=== PATIENT | female | born 1970 | race Caucasian/White ===

== ENCOUNTER 2017-12-10 09:29 | Inpatient (IN) | payer OTHER ==
[~2017-12-10] VITALS: Ht 149.9 cm; Wt 90.7 kg
[2017-12-10 09:30] VITALS: BP 162/78
--- NOTE | 2017-12-10 09:30 | NUR ---
Note undone in EDM - 12/10/17 at 1029 by CAESAR 47F biba als to rm 10 for sob since 299 d/t possible allergic reaction, progressively getting worse. Patient sts fish allergy and works at [employer], possible contact with fish. Came from urgent today bell captain. Severe sob with tachypneic and labored breathing. One worded phrases. 100% pulse ox on 8L on face mask. Lip and face swelling noted. Tachycardiac. Rash to groin area per patient for past 2 weeks. Patient denies any nausea at this time. ER MD serra, emt, rt by bedside. Patient to cardiac, bp, pulse ox, and respiration monitor. Will continue to monitor.
--- NOTE | 2017-12-10 09:30 | NUR ---
PT BIBA ALS TO BED 10
--- NOTE | 2017-12-10 09:30 | NUR ---
47F biba als to rm 10 for sob since 299 d/t possible allergic reaction, progressively getting worse. Patient sts fish allergy and works at [employer], possible contact with fish. Came from urgent today administrative dietitian. Severe sob with tachypneic and labored breathing. One worded phrases. 100% pulse ox on 8L on face mask. Angiodema present to lip and face swelling noted. Tachycardiac. Rash to groin area per patient for past 2 weeks. Patient denies any nausea at this time. ER MD serra, emt, rt by bedside. Patient to cardiac, bp, pulse ox, and respiration monitor. Will continue to monitor.
[2017-12-10] MEDS ORDERED: IPRATROPIUM 0.02% 0.5 MG/2.5 ML NEBU INH ONE (09:35)
[2017-12-10] MEDS ORDERED: methylPREDNISolone SS 125 MG/2 ML VIAL IVP ONE (09:35)
[2017-12-10] MEDS ORDERED: NACL 0.9% 1,000 ML IV ONE (09:35)
[2017-12-10] MEDS ORDERED: RACEPINEPHRINE 2.25% 13.5 MG/0.5 ML NEBU INH ONE ×2 (09:35→09:38)
[2017-12-10] MEDS ORDERED: ALBUTEROL 0.083% 2.5 MG/3 ML NEBU INH ONE ×2 (09:35→10:25)
[2017-12-10] MEDS ORDERED: MAG SULF 2000 MG/WATER PREMIX 50 ML IV ONE (09:35)
[2017-12-10] MEDS ORDERED: FAMOTIDINE 20 MG/2 ML VIAL IVP ONE (09:35)
[2017-12-10] MEDS ORDERED: diphenhydrAMINE 50 MG/ML VIAL IVP ONE (09:35)
--- NOTE | 2017-12-10 09:35 | NUR ---
XRAY AT BEDSIDE FOR EXAM
--- NOTE | 2017-12-10 10:17 | NUR ---
er md serra by bedside re-evaluating patient. new orders. rt called. daughter by bedside. will continue to monitor. wheezing throughout lung sounds upper and lower bases. patient talking in short phrases. tachynpeic and labored breathing. angioedema remains present.
--- NOTE | 2017-12-10 11:02 | NUR ---
urine collected for ua
[2017-12-10] MEDS ORDERED: DOCUSATE SODIUM 100 MG GELCAP PO PRN (11:15)
[2017-12-10] MEDS ORDERED: ONDANSETRON 4 MG/2 ML VIAL IM/IVP PRN (11:15)
[2017-12-10] MEDS ORDERED: ACETAMINOPHEN 325 MG TAB PO PRN (11:15)
[2017-12-10 11:31] LABS: EOSINOPHILS # (AUTO) 0.3 K/uL (0-0.4); MEAN CORPUSCULAR HEMOGLOBIN 20 pg (27-31); MEAN CORPUSCULAR HGB CONC 29 g/dL (33-37); MEAN CORPUSCULAR VOLUME 67.3 fL (80-94)
--- NOTE | 2017-12-10 11:32 | NUR ---
resp status improved. clear speech with short phrases. clear lungs sound to bl upper and lower bases. awaiting pending admit. pt positioned to comfort. all needs met at this time. will continue to monitor.
[2017-12-10 11:38] LABS: APPEARANCE,URINE CLEAR (CLEAR); BILIRUBIN,URINE NEGATIVE (NEGATIVE); BLOOD, URINE NEGATIVE (NEGATIVE); COLOR,URINE YELLOW (YELLOW); LEUKOCYTE ESTERASE ,URINE NEGATIVE (NEGATIVE); NITRITE, URINE NEGATIVE (NEGATIVE); PH,URINE 5.5 (5.0-9.0); UGLUCOSE NEGATIVE (NEGATIVE)
[2017-12-10 11:39] LABS: PROTHROMBIN TIME 9.3 secs (10.8-13.4)
[2017-12-10 11:41] LABS: BASOPHILS % (AUTO) 0.2 % (0.0-2.0); EOSINOPHILS % (AUTO) 1.6 % (0.0-4.0); LYMPHOCYTES # (AUTO) 7.3 K/uL (2.5-16.5); LYMPHOCYTES % (AUTO) 37.1 % (20.5-51.1); MONOCYTES # (AUTO) 1.1 K/uL (0.8-1.0); MONOCYTES % (AUTO) 5.5 % (1.7-9.3); NEUTROPHILS % (AUTO) 55.6 % (42.2-75.2); PLATELET COUNT (AUTO) 363 K/uL (140-450)
[2017-12-10 11:42] LABS: WHITE BLOOD COUNT (AUTO) 19.3 K/uL (4.8-10.8)
[2017-12-10 11:43] LABS: ALBUMIN 3.5 g/dL (3.4-5.0); ANION GAP 16.6 (8-16); CARBON DIOXIDE 23.4 mmol/L (21-32); CREATININE 0.7 mg/dL (0.6-1.3); HEMATOCRIT 33.7 % (36-48); HEMOGLOBIN 9.9 g/dL (12.0-16.0); TOTAL BILIRUBIN 0.4 mg/dL (0.0-1.0)
[2017-12-10 11:43] LABS: BARBITURATE, URINE NEG. ng/ml (NEG <=200); BENZODIAZEPINE, URINE NEG. ng/mL (NEG <=200); CANNABINOID, URINE NEG. ng/mL (NEG <=50); COCAINE, URINE NEG. ng/mL (NEG <=300); OPIATE, URINE NEG. ng/mL (NEG <=2000); PHENCYCLIDINE SCREEN,URINE NEG. ng/mL (NEG <=25)
[2017-12-10 11:49] LABS: CHOL/HDL RATIO 2.4 (1-4.5); MAGNESIUM 1.7 mg/dL (1.8-2.4); PHOSPHORUS 2.4 mg/dL (2.5-4.9); THYROID STIMULATING HORMONE 2.75 uIU/mL (0.34-3.74)
--- NOTE | 2017-12-10 12:00 | NUR ---
Patient will be admitted to care of [facility]. Admited to Tele. Will go to room 105A. Belongings list completed. Bedside Report to Patricia HOFFMAN.
[2017-12-10 12:15] VITALS: BP 134/62
--- NOTE | 2017-12-10 12:15 | NUR ---
PATIENT BROUGHT TO UNIT VIA GURNEY FROM THE ER. RECEIVED BEDSIDE REPORT FROM LENS BLANK GAUGER. PATIENT IS AAOX4, HAS NO SIGNS AND SYMPTOMS OF ACUTE DISTRESS NOTED AT THIS TIME. IS ON NASAL CANNULA AT 2LPM. HAS IV TO THE RIGHT HAND 22G, SALINE LOCK. IV TO THE LEFT AC 20G. BOTH SITES ARE CLEAN, DRY AND PATENT. ORIENTED PATIENT TO THE ROOM, EXPLAINED THE CALL LIGHT AND SHE VERBALIZED UNDERSTANDING. BED IN LOWEST POSITION,SIDE RAILS UP X2, CALL LIGHT WITHIN REACH. MRSA SWAB DONE. WILL CONTINUE TO MONITOR.
[2017-12-10] MEDS: DEXT 5% / NACL 0.45% 1,000 ML IV SCH ×2 (12:39→22:38)
[2017-12-10] MEDS ORDERED: LISI10TA11 PO (12:53)
[2017-12-10] MEDS ORDERED: LISINOPRIL 10 MG TAB PO SCH (13:30)
[2017-12-10] MEDS ORDERED: KCL 20 MEQ/WATER INJ PREMIX 200 ML IV SCH (14:00)
--- NOTE | 2017-12-10 15:30 | NUR ---
PATIENTS FACIAL SWELLING LOOKS LIKE IT WENT DOWN SOME. SHE STATES THAT SHE FEELS LIKE IT HAS WELL. SAME WITH HER TONGUE AND HER THROAT. NO SIGNS AND SYMPTOMS OF DISTRESS NOTED. WILL CONTINUE TO MONITOR;.
[2017-12-10 16:00] VITALS: BP 104/53
[2017-12-10] MEDS ORDERED: ALBUTEROL SULFATE/IPRATROPIU 3 ML SOL IH PRN (18:10)
[2017-12-10] MEDS: ALBUTEROL SULFATE/IPRATROPIU 3 ML SOL IH SCH (19:27)
--- NOTE | 2017-12-10 19:29 | NUR ---
ENDORSED PATIENT TO NIGHT RN FOR CONTINUITY OF CARE. PATIENT IN STABLE CONDITION.
--- NOTE | 2017-12-10 19:30 | NUR ---
RECEIVED FROM AM RN IN BED AWAKE AND ALERT. NO SOB. ON BREATHING TREATMENT AT THIS TIME WITH RESPIRATORY THERAPIST. CALL LIGHT WITH IN REACH. FRIENDS IN HERE VISITING. CARE PLANS FOR THE NIGHT DISCUSSED WITH THEM . PT. ABLE TO SPEAK HEBREW AND UNDERSTAND IT WELL. TELEMETRY MONITORING. RH# 22 INTACT AND NO INFILTRATION.
[2017-12-10 20:24] VITALS: BP 127/72
[2017-12-10] MEDS ORDERED: DEXTROSE 50% 50 ML SYR IVP PRN (21:40)
--- NOTE | 2017-12-10 22:00 | NUR ---
NEW IVF SITE TO RIGHT FOREARM #22 INSERTED BY CHARGE NURSE RT OLD IVF SITE DISCONTINUED BY PT. ACCIDENTALLY. TIP INTACT. TOLERATED WELL.
[2017-12-11 00:41] VITALS: BP 106/74
--- NOTE | 2017-12-11 00:42 | NUR ---
PT. SLEEPING WELL AT THIS TIME. NO RESTLESSNESS. CALL LIGHT WITH IN REACH. ASSISTED TO RESTROOM .
[2017-12-11 04:41] VITALS: BP 115/69
--- NOTE | 2017-12-11 05:47 | NUR ---
SLEEPING WELL THIS SHIFT. VITAL SIGNS WNL. WAKES UP EASILY. PT. STATED NO MORE FEELING OF TIGHTNESS IN HER THROAT. ON ROOM AIR WITH 02 SAT AT 98 %. DENIES PAIN. TELEMETRY MONITORING.
[2017-12-11] MEDS: BLOOD GLUCOSE MONITORING 1 DEV DEV FS SCH ×4 (06:40→21:14)
[2017-12-11] MEDS: INSULIN LISPRO SLIDING SCALE 100 UNITS/ML VIAL SUBQ PRN ×4 (06:42→21:21)
[2017-12-11] MEDS: ALBUTEROL SULFATE/IPRATROPIU 3 ML SOL IH SCH ×3 (06:53→19:12)
[2017-12-11 06:54] LABS: HEMATOCRIT 29.9 % (36-48); HEMOGLOBIN 8.9 g/dL (12.0-16.0); MEAN CORPUSCULAR HEMOGLOBIN 20 pg (27-31); MEAN CORPUSCULAR HGB CONC 30 g/dL (33-37); MEAN CORPUSCULAR VOLUME 67.2 fL (80-94); PLATELET COUNT (AUTO) 301 K/uL (140-450); RED BLOOD CELL COUNT(AUTO) 4.44 MIL/uL (4.20-5.40); RED CELL DISTRIBUTION WIDTH 18.9 % (11.6-13.7); WHITE BLOOD COUNT (AUTO) 15.8 K/uL (4.8-10.8)
--- NOTE | 2017-12-11 07:24 | NUR ---
ENDORSED TO THE AM RN AWAKE AND ALERT. NO RESTLESSNESS. TELEMETRY MONITORING. DENIED PAIN THIS SHIFT. NO SOB. ROOM AIR 98 %. GOOD AFFECT. ROM X 4. CLEAR SPEECH.
--- NOTE | 2017-12-11 07:25 | NUR ---
RECEIVED REPORT FROM KIT PLANNER NURSE AT BEDSIDE FOR CONTINUITY OF CARE. PATIENT AWAKE AND ALERT, CAN VERBALIZED NEEDS, PATIENT AMBULATES ON STEADY GAIT. PATIENT NPO. UPDATED BOARD. IV TO RIGHT FA #22, PATENT, ASYMPTOMATIC, AND INTACT, INFUSING IVF WELL. UPDATED PATIENT WITH PLAN OF CARE. PATIENT VERBALIZED UNDERSTANDING. SAFETY PRECAUTION IN PLACE, CALL LIGHT WITH IN REACH, WILL CONTINUE TO MONITOR PATIENT.
[2017-12-11 07:45] LABS: ANION GAP 11.9 (8-16); CARBON DIOXIDE 23.9 mmol/L (21-32); CREATININE 0.6 mg/dL (0.6-1.3); POTASSIUM 3.8 mmol/L (3.5-5.1)
[2017-12-11 07:54] LABS: MAGNESIUM 2.2 mg/dL (1.8-2.4); PHOSPHORUS 2.5 mg/dL (2.5-4.9)
[2017-12-11 08:00] VITALS: BP 140/71
[2017-12-11 08:08] LABS: LYMPHOCYTES % (MANUAL) 17 % (20-46); MONOCYTES % (MANUAL) 5 % (5-12)
[2017-12-11 08:14] LABS: T4 (THYROXINE) 10.3 ug/dL (4.5-12.0)
[2017-12-11] MEDS ORDERED: methylPREDNISolone SS 125 MG/2 ML VIAL IVP SCH (08:15)
[2017-12-11] MEDS: LISINOPRIL 10 MG TAB PO SCH (08:16)
[2017-12-11] MEDS: DEXT 5% / NACL 0.45% 1,000 ML IV SCH (08:24)
--- NOTE | 2017-12-11 08:29 | NUR ---
BEDSIDE SWALLOW SCREENING DONE. PATIENT TOLERATED WATER AND APPLESAUCE WELL. NO DISCOMFORT FROM SWALLOWING NOTED. ORDERED MEDICATIONS GIVEN. PATIENT TOLERATED THEM WELL. NO SIGNS OF DISTRESS OR SOB NOTED ON ROOM AIR. INFORMED DR. LANDEROS ABOUT RESULTS, NEW ORDER IN FOR CCHO 60 GM DIET. CALLED DIETARY TO INFORM THEM OF THE CHANGE. INFORMED PATIENT. WILL FOLLOW UP WITH DIETARY.
[2017-12-11] MEDS ORDERED: diphenhydrAMINE 50 MG/ML VIAL IVP SCH (09:15)
--- NOTE | 2017-12-11 09:21 | NUR ---
PATIENT C/O ITCHINESS AROUND LIPS. INFORMED DR. LANDEROS, NEW ORDERS IN FOR BENADRYL IVP. INFORMED PATIENT. ORDERED MEDICATION GIVEN. PATIENT TOLERATED IT WELL. DAUGHTER AT BEDSIDE. PATIENT CURRENTLY EATING LATE BREAKFAST TRAY BROUGHT UP BY FNS. WILL CONTINUE TO MONITOR PATIENT.
--- NOTE | 2017-12-11 09:35 | NUR ---
PATIENT HAS BEEN SCREENED AND CATEGORIZED HIGH NUTRITION RISK. PATIENT WILL BE SEEN WITHIN 1-2 DAYS OF ADMISSION. 12/11/17-12/12/[address]
[2017-12-11] MEDS ORDERED: LORATADINE 10 MG TAB PO SCH (11:07)
[2017-12-11] MEDS ORDERED: FAMOTIDINE 20 MG TAB PO SCH (11:08)
[2017-12-11] MEDS: SODIUM PHOS / POTASSIUM PHOS 1 PKT PDR PO SCH ×3 (11:39→21:18)
--- NOTE | 2017-12-11 11:39 | NUR ---
ORDERED MEDICATIONS GIVEN. ORDERED NS AT 40 ML/HR STARTED. BLOOD SUGAR 234, COVERAGE GIVEN. PATIENT TOLERATING IT WELL. PATIENT NOW WAITING FOR LUNCH. NO SIGNS OF DISTRESS OR SOB NOTED ON ROOM AIR. SAFETY PRECAUTION IN PLACE, WILL CONTINUE TO MONITOR PATIENT.
[2017-12-11] MEDS: NACL 0.9% 1,000 ML IV SCH (11:40)
[2017-12-11 12:00] VITALS: BP 120/69
--- NOTE | 2017-12-11 13:25 | NUR ---
PATIENT RESTING IN BED, NO SIGNS OF DISTRESS NOTED. PATIENT CURRENTLY GETTING BREATHING TREATMENT. VERBALIZED THAT SHE ATE HER LUNCH WELL. PATIENT DENIES PAIN. WILL CONTINUE TO MONITOR PATIENT.
[2017-12-11 16:00] VITALS: BP 124/64
--- NOTE | 2017-12-11 17:40 | NUR ---
BLOOD SUGAR 252, COVERAGE GIVEN. PATIENT TOLERATED IT WELL. ORDERED MEDICATION GIVEN. PATIENT TOLERATED IT WELL. WILL CONTINUE TO MONITOR PATIENT.
--- NOTE | 2017-12-11 19:25 | NUR ---
RECEIVED REPORT FROM DAY SHIFT NURSE AT BEDSIDE. PT IN STABLE CONDITION. FAMILY IS AT BEDSIDE. PT IS A/O X4. PT ON RA. IV ACCESS IN R FA 22G. IV IS PATENT AND INTACT WITH NS RUNNING PER MD ORDERS. SKIN IS INTACT. NO C/O PAIN AT THIS TIME. BED LOCKED, LOW POSITION, SIDE RAILS UP X2. BOARD UPDATED WILL CONTINUE TO MONITOR PT.
--- NOTE | 2017-12-11 19:25 | NUR ---
REPORT GIVEN TO FINANCIAL COMPLIANCE EXAMINER RN AT BEDSIDE FOR CONTINUITY OF CARE. PATIENT IN STABLE CONDITION.
[2017-12-11 20:00] VITALS: BP 125/58
--- NOTE | 2017-12-11 21:14 | NUR ---
BS CHECKED, 236. INSULIN COVERAGE GIVEN PER MD ORDERS. PT TOLERATED WELL. ALL NEEDS ARE MET AT THIS TIME.
--- NOTE | 2017-12-11 23:10 | NUR ---
PT ASLEEP IN BED. NO S/SX OF DISTRESS. WILL CONTINUE TO MONITOR.
[2017-12-12] VITALS: BP 120/71
--- NOTE | 2017-12-12 00:18 | NUR ---
PT VS WITHIN NORMAL LIMITS. PT IS ASLEEP IN BED. WILL CONTINUE TO MONITOR.
--- NOTE | 2017-12-12 02:39 | NUR ---
PT IS ASLEEP IN BED. NO S/SX OF DISTRESS. WILL CONTINUE TO MONITOR.
[2017-12-12 04:00] VITALS: BP 118/67
--- NOTE | 2017-12-12 04:10 | NUR ---
PT VS WITHIN NORMAL LIMITS. ALL NEEDS ARE MET AT THIS TIME. WILL CONTINUE TO MONITOR PT.
[2017-12-12] MEDS: BLOOD GLUCOSE MONITORING 1 DEV DEV FS SCH ×2 (05:23→12:06)
--- NOTE | 2017-12-12 05:24 | NUR ---
BS CHECKED, 123. PER MD ORDERS NO COVERAGE NEEDED. WILL CONTINUE TO MONITOR PT.
[2017-12-12 06:24] LABS: HEMATOCRIT 29.1 % (36-48); HEMOGLOBIN 8.6 g/dL (12.0-16.0); MEAN CORPUSCULAR HEMOGLOBIN 20 pg (27-31); MEAN CORPUSCULAR HGB CONC 30 g/dL (33-37); MEAN CORPUSCULAR VOLUME 67.3 fL (80-94); PLATELET COUNT (AUTO) 258 K/uL (140-450); RED BLOOD CELL COUNT(AUTO) 4.32 MIL/uL (4.20-5.40); RED CELL DISTRIBUTION WIDTH 19.2 % (11.6-13.7); WHITE BLOOD COUNT (AUTO) 14.9 K/uL (4.8-10.8)
[2017-12-12 06:29] LABS: ANION GAP 14.1 (8-16); CARBON DIOXIDE 24.5 mmol/L (21-32); CREATININE 0.6 mg/dL (0.6-1.3); POTASSIUM 3.6 mmol/L (3.5-5.1)
[2017-12-12 06:32] LABS: MAGNESIUM 2.1 mg/dL (1.8-2.4); PHOSPHORUS 3.2 mg/dL (2.5-4.9)
[2017-12-12] MEDS: ALBUTEROL SULFATE/IPRATROPIU 3 ML SOL IH SCH ×2 (06:39→13:00)
--- NOTE | 2017-12-12 06:39 | NUR ---
PT SLEEPING WITH NO SIGNS OF DISTRESS NOTED AT THIS TIME, NO HHN GIVEN AT THIS TIME
--- NOTE | 2017-12-12 07:15 | NUR ---
ENDORSED PT TO DAY SHIFT NURSE FOR CONTINUITY OF CARE. PT IN STABLE CONDITION.
--- NOTE | 2017-12-12 07:16 | NUR ---
RECEIVED REPORT FROM LAB CLERK NURSE AT BEDSIDE FOR CONTINUITY OF CARE. PATIENT RESTING, CAN VERBALIZED NEEDS, PATIENT AMBULATES ON STEADY GAIT. UPDATED BOARD. IV TO RIGHT FA #22, PATENT, ASYMPTOMATIC, AND INTACT, INFUSING IVF WELL. UPDATED PATIENT WITH PLAN OF CARE. PATIENT VERBALIZED UNDERSTANDING. SAFETY PRECAUTION IN PLACE, CALL LIGHT WITH IN REACH, WILL CONTINUE TO MONITOR PATIENT.
[2017-12-12 07:25] LABS: BASOPHILS % (MANUAL) 0 % (0-2); EOSINOPHILS % (MANUAL) 0 % (0-4); LYMPHOCYTES % (MANUAL) 28 % (20-46); MONOCYTES % (MANUAL) 6 % (5-12)
[2017-12-12 08:00] VITALS: BP 127/68
[2017-12-12] MEDS: LISINOPRIL 10 MG TAB PO SCH (08:13)
[2017-12-12] MEDS: SODIUM PHOS / POTASSIUM PHOS 1 PKT PDR PO SCH ×2 (08:14→12:09)
--- NOTE | 2017-12-12 08:15 | NUR ---
ADMINISTERED ORDERED MORNING MEDICATIONS. PATIENT TOLERATED THEM WELL. NO SIGNS OF DISTRESS NOTED ON ROOM AIR. PATIENT DENIES PAIN OR ITCHINESS. WILL CONTINUE TO MONITOR PATIENT.
[2017-12-12] MEDS ORDERED: LORATADINE 10 MG TAB PO SCH (09:00)
[2017-12-12] MEDS ORDERED: FAMOTIDINE 20 MG TAB PO SCH (09:00)
--- NOTE | 2017-12-12 09:29 | NUR ---
12/12/17 RD INITIAL ASSESSMENT COMPLETED PLEASE REFER TO NUTRITION ASSESSMENT UNDER CARE ACTIVITY FOR ESTIMATED NUTRITIONAL NEEDS. RD RECOMMENDATIONS: 1. CONTINUE ON CCHO 60 GM TOLERATED. 2. CONSULT RDN PRN. 3. RD WILL F/U 7 DAYS; LOW RISK. JOAN SELLERS MS, RDN
--- NOTE | 2017-12-12 10:20 | NUR ---
PATIENT RESTING IN BED, FAMILY AT BEDSIDE. NO SIGNS OF DISTRESS OR SOB NOTED ON ROOM AIR. WILL CONTINUE TO MONITOR PATIENT.
[2017-12-12] MEDS: NACL 0.9% 1,000 ML IV SCH (11:30)
[2017-12-12 12:00] VITALS: BP 132/87
--- NOTE | 2017-12-12 12:09 | NUR ---
ADMINISTERED ORDERED MORNING MEDICATIONS. PATIENT TOLERATED THEM WELL. NO SIGNS OF DISTRESS NOTED ON ROOM AIR. PATIENT DENIES PAIN OR ITCHINESS. WILL CONTINUE TO MONITOR PATIENT. INFORMED PATIENT OF IMPENDING DISCHARGE. PATIENT VERBALIZED UNDERSTANDING.
[2017-12-12] MEDS ORDERED: ASCORBIC ACID 500 MG TAB PO SCH ×2 (12:39→21:00)
[2017-12-12] MEDS ORDERED: FERROUS SULFATE 325 MG TABEC PO SCH ×2 (12:40→17:00)
[2017-12-12] MEDS ORDERED: VITC500 PO (12:43)
[2017-12-12] MEDS ORDERED: FER325 PO (12:43)
[2017-12-12] MEDS ORDERED: EPIN1KIT32 MR (12:43)
--- NOTE | 2017-12-12 12:56 | NUR ---
NEW ORDERED MEDICATIONS IN. PATIENT MEDICATED. PATIENT TOLERATED IT WELL. NO C/O PAIN. WILL CONTINUE TO MONITOR PATIENT.
--- NOTE | 2017-12-12 13:01 | NUR ---
PT AWAKE AND ALERT REFUSED BREATHING TX AT THIS TIME NO SIGNS OF DISTRESS NOTED SITTING UP IN BED WITH FAMILY AT BEDSIDE
--- NOTE | 2017-12-12 15:00 | NUR ---
DISCHARGE INSTRUCTIONS AND EDUCATION GIVEN TO PATIENT. SHE VERBALIZED UNDERSTANDING. IV REMOVED, IV CATHETER INTACT, MINIMAL BLOOD NOTED. ID BANDS CUT, TELE BOX REMOVED. PATIENT WILL NOW BEGIN TO CHANGE AND BE READY TO BE DISCHARGED HOME.
--- NOTE | 2017-12-12 15:15 | NUR ---
PATIENT AMBULATED OFF FLOOR WITH RN AND FAMILY MEMBER ON STEADY GAIT. PATIENT TOOK ALL HER BELONGINGS WITH HER. PATIENT IN STABLE CONDITION.
--- NOTE | 2017-12-13 13:46 | NUR ---
Patient was discharged home 12/12/17- Review faxed to [facility] [phone].
[2017-12-14 06:16] LABS: FOLIC ACID 13.3 ng/mL (>3.0)
== END 2017-12-12 15:15 | disposition home or self-care (01) | DRG 915 ==
LOC: MED 09:29 → MTU 11:11
PROVIDERS: ADMIT General Practice; ATTEND General Practice
DX: T78.03XA Anaphylactic reaction due to other fish, initial encounter (principal); E43 Unspecified severe protein-calorie malnutrition; R65.10 Systemic inflammatory response syndrome (SIRS) of non-infectious origin without acute organ dysfunction; E87.2 Acidosis; Z68.41 Body mass index [BMI] 40.0-44.9, adult; E83.42 Hypomagnesemia; E83.39 Other disorders of phosphorus metabolism; E66.01 Morbid (severe) obesity due to excess calories; E11.69 Type 2 diabetes mellitus with other specified complication; E11.65 Type 2 diabetes mellitus with hyperglycemia; E87.8 Other disorders of electrolyte and fluid balance, not elsewhere classified; D72.828 Other elevated white blood cell count; T38.0X5A Adverse effect of glucocorticoids and synthetic analogues, initial encounter; R82.4 Acetonuria; E87.6 Hypokalemia; G47.33 Obstructive sleep apnea (adult) (pediatric); D50.9 Iron deficiency anemia, unspecified; I10 Essential (primary) hypertension; Z91.013 Allergy to seafood; Z90.49 Acquired absence of other specified parts of digestive tract; Z79.899 Other long term (current) drug therapy; Z83.3 Family history of diabetes mellitus; Z82.61 Family history of arthritis; Z84.1 Family history of disorders of kidney and ureter; Z82.49 Family history of ischemic heart disease and other diseases of the circulatory system; Y92.89 Other specified places as the place of occurrence of the external cause
CPT/HCPCS: 36415; 71045; 80048; 80053; 80305; 81003; 81025; 82150; 82607; 82728; 82746; 82948; 83036; 83540; 83605; 83690; 83735; 83880; 84100; 84134; 84436; 84443; 84484; 85025; 85045; 85610; 85730; 87040; 87081; 87086; 93005; 94640; 96365; 96375; 99291; J1200; J1815; J2930; J3475; J3480; J3490; J7030; J7042; J7613; J7620; J7644; Q0092

== ENCOUNTER 2017-12-13 19:15 | Emergency (ER) | payer SELFPAY ==
[~2017-12-13] VITALS: Ht 152.4 cm; Wt 81.6 kg
[~2017-12-13 19:15] MED LIST: EPIN1KIT32 MR; FER325 PO; LISI10TA11 PO; VITC500 PO
[2017-12-13 19:20] VITALS: BP 134/79
[2017-12-13] MEDS ORDERED: diphenhydrAMINE 50 MG/ML VIAL IVP ONE (19:30)
[2017-12-13] MEDS ORDERED: FAMOTIDINE 20 MG/2 ML VIAL IVP ONE (19:30)
[2017-12-13] MEDS ORDERED: NACL 0.9% 1,000 ML IV ONE (19:30)
[2017-12-13] MEDS ORDERED: methylPREDNISolone SS 125 MG in WATER STERILE 2 ML IV ONE (19:30)
[2017-12-13] MEDS ORDERED: methylPREDNISolone SS 125 MG/2 ML VIAL ONE (19:32)
[2017-12-13] MEDS ORDERED: diphenhydrAMINE 50 MG/ML VIAL ONE (19:33)
[2017-12-13] MEDS ORDERED: ALBUTEROL SULFATE/IPRATROPIU 3 ML SOL IH ONE (19:35)
--- NOTE | 2017-12-13 19:48 | NUR ---
Breathing treatment administered at bedside by respiratory therapist.
--- NOTE | 2017-12-13 20:00 | NUR ---
PATIENT IS A 47 Y/O FEMALE WHO PRESENTS TO THE ED C/O SOB. PT STATES THAT SHE WAS ADMITTED AND D/C RECENTLY BUT IS COMPLAINING OF THROAT CLOSING UP. PT REPORTS 5/10 ACHING CHEST PAIN THAT DOES NOT RADIATE. PT 100% O2 ON RA, LUNG SOUNDS CLEAR BL. PT DENIES COUGH, N/V/D. PT AWAKE AND ALERT, RR EVEN/UNLABORED. PT REPOSITIONED FOR COMFORT, BED IN LOWEST POSITION. ER MD DR. THEODORE NOTIFIED. WILL CONTINUE TO MONITOR.
--- NOTE | 2017-12-13 20:30 | NUR ---
PATIENT RESTING AT THIS TIME. NO SIGNS OF DISTRESS.
[2017-12-13 21:00] VITALS: BP 132/75
--- NOTE | 2017-12-13 21:00 | NUR ---
Patient discharged with v/s stable. Written and verbal after care instructions given and explained. Patient alert, oriented and verbalized understanding of instructions. Ambulatory with steady gait. All questions addressed prior to discharge. ID band removed. Patient advised to follow up with PMD. Rx of PREDNISONE, EPIPEN, PEPCID, AND BENADRYL given. Patient educated on indication of medication including possible reaction and side effects. Opportunity to ask questions provided and answered.
== END 2017-12-13 21:00 | disposition home or self-care (01) ==
LOC: MED 19:15
DX: T78.1XXA Other adverse food reactions, not elsewhere classified, initial encounter (principal); R06.02 Shortness of breath; R06.2 Wheezing; I10 Essential (primary) hypertension; Z91.013 Allergy to seafood; Z79.899 Other long term (current) drug therapy; X58.XXXA Exposure to other specified factors, initial encounter
CPT/HCPCS: 94640; 96374; 96375; 99284; J1200; J2930; J3490; J7620

== ENCOUNTER 2018-01-31 16:29 | Emergency (ER) | payer SELFPAY ==
[~2018-01-31] VITALS: Ht 152.4 cm; Wt 93.0 kg
--- NOTE | 2018-01-31 16:32 | NUR ---
PT AMBULATES TO BED 3
[2018-01-31 16:37] VITALS: BP 157/91
[2018-01-31] MEDS ORDERED: ALBUTEROL 0.083% 2.5 MG/3 ML NEBU INH ONE ×2 (16:40→17:35)
[2018-01-31] MEDS ORDERED: diphenhydrAMINE 50 MG CAP PO ONE (16:40)
[2018-01-31] MEDS ORDERED: ALBUTEROL SULFATE/IPRATROPIU 3 ML SOL IH ONE ×2 (16:40→17:35)
--- NOTE | 2018-01-31 16:40 | NUR ---
47 Y/O F W/C/O "HAVING DIFFICULTY SPEAKING BECAUSE I AM SHORT OF BREATH." PT STATES SHE FEELS THAT SHE MAY BE HAVING AN ANAPHALECTIC REACTION BECAUSE HAS HAD ONE BEFORE TO SEA FOOD. PT DENIES EATING ANY SEA FOOD. PT HAS NASAL FLARING AND SHALLOW BREATHING. PT DENIES N/V/D; SKIN IS INTACT, PINK/WARM/DRY; AAOX4, PERRL, WITH EVEN AND STEADY GAIT; LUNGS WHEEZING AND DIMINISHED BL, BREATHING LABORED; HR EVEN AND REGULAR, BL PERIPHERAL PULSES PRESENT; BS ACTIVE X4, NO TENDERNESS TO PALPATION, NO HEPATOSPLENOMEGALLY PALPATED, RESONANT TO PERCUSSION; PT DENIES ANY FEVER, CP, OR COUGH AT THIS TIME; PT STATES 0/10 PAIN AT THIS TIME; VSS; PATIENT POSITIONED FOR COMFORT; HOB ELEVATED; BEDRAILS UP X2; BED DOWN. ER MD MADE AWARE OF PTS STATUS, ORDERS TO BE PLACED. HX: HTN, DM
--- NOTE | 2018-01-31 16:40 | NUR ---
Note undone in EDM - 01/31/18 at 1658 by JC 47 Y/O F W/C/O "HAVING DIFFICULTY SPEAKING BECAUSE I AM SHORT OF BREATH." PT STATES SHE FEELS THAT SHE MAY BE HAVING AN ANAPHALECTIC REACTION BECAUSE HAS HAD ONE BEFORE TO SEA FOOD. PT DENIES EATING ANY SEA FOOD. PT HAS NASAL FLARING AND SHALLOW BREATHING. PT DENIES N/V/D; SKIN IS INTACT, PINK/WARM/DRY; AAOX4, PERRL, WITH EVEN AND STEADY GAIT; LUNGS CLEAR BL, BREATHING LABORED; HR EVEN AND REGULAR, BL PERIPHERAL PULSES PRESENT; BS ACTIVE X4, NO TENDERNESS TO PALPATION, NO HEPATOSPLENOMEGALLY PALPATED, RESONANT TO PERCUSSION; PT DENIES ANY FEVER, CP, OR COUGH AT THIS TIME; PT STATES 0/10 PAIN AT THIS TIME; VSS; PATIENT POSITIONED FOR COMFORT; HOB ELEVATED; BEDRAILS UP X2; BED DOWN. ER MD MADE AWARE OF PTS STATUS, ORDERS TO BE PLACED. HX: HTN, DM
--- NOTE | 2018-01-31 16:41 | NUR ---
CALLED RT FOR TREATMENT
--- NOTE | 2018-01-31 17:28 | NUR ---
DR COLMENARES AT BEDSIDE FOR PT EVALUATION
--- NOTE | 2018-01-31 17:33 | NUR ---
CALLED RT FOR REPEAT TREATMENT
[2018-01-31] MEDS ORDERED: predniSONE 20 MG TAB PO ONE (17:35)
--- NOTE | 2018-01-31 17:40 | NUR ---
RT AT BEDSIDE FOR REPEAT TREATMENT
[2018-01-31] MEDS ORDERED: LORazepam 1 MG TAB PO ONE (18:10)
[2018-01-31 18:50] VITALS: BP 162/77
--- NOTE | 2018-01-31 18:50 | NUR ---
Patient discharged with v/s stable. Written and verbal after care instructions given and explained. Patient alert, oriented and verbalized understanding of instructions. Ambulatory with steady gait. All questions addressed prior to discharge. ID band removed. Patient advised to follow up with PMD. Rx of PRENISON given. Patient educated on indication of medication including possible reaction and side effects. Opportunity to ask questions provided and answered.
== END 2018-01-31 18:50 | disposition home or self-care (01) ==
LOC: MED 16:29
DX: T78.40XA Allergy, unspecified, initial encounter (principal); X58.XXXA Exposure to other specified factors, initial encounter
CPT/HCPCS: 82948; 94640; 96372; 99284; J0171; J7613; J7620; Q0163; J7512

== ENCOUNTER 2018-03-09 21:18 | Emergency (ER) | payer OTHER ==
[~2018-03-09] VITALS: Ht 162.6 cm; Wt 95.9 kg
[2018-03-09 21:29] VITALS: BP 143/67
[2018-03-09] MEDS ORDERED: methylPREDNISolone SS 125 MG/2 ML VIAL IM ONE (21:30)
[2018-03-09] MEDS ORDERED: diphenhydrAMINE 50 MG/ML VIAL IM ONE (21:30)
[2018-03-09 23:40] VITALS: BP 156/81
== END 2018-03-09 23:38 | disposition home or self-care (01) ==
LOC: MED 21:18
DX: T78.1XXA Other adverse food reactions, not elsewhere classified, initial encounter (principal); X58.XXXA Exposure to other specified factors, initial encounter; Z91.013 Allergy to seafood; J45.909 Unspecified asthma, uncomplicated; E11.9 Type 2 diabetes mellitus without complications; I10 Essential (primary) hypertension; Z90.49 Acquired absence of other specified parts of digestive tract; Z79.899 Other long term (current) drug therapy
CPT/HCPCS: 70490; 81002; 81025; 82948; 96372; 99284; J0171; J1200; J2930

== ENCOUNTER 2018-04-09 22:51 | Emergency (ER) | payer OTHER ==
[~2018-04-09] VITALS: Ht 152.4 cm; Wt 88.5 kg
[2018-04-09 22:54] VITALS: BP 170/84
--- NOTE | 2018-04-09 22:57 | NUR ---
PT AMBULATORY TO ER LOBBY W/ STEADY GAIT IN STABLE CONDITION.
--- NOTE | 2018-04-09 23:03 | NUR ---
PT AMBULATORY TO ER BED 11
--- NOTE | 2018-04-09 23:16 | NUR ---
PATIENT PRESENTS TO ED WITH FACIAL SWELLING/ALLERGIC REACTIN. PT STATES SHE NOTICED SWELLING AROUND 1700 AND IT HAS BEEN INCREASING SINCE. AIRWAY PATENT, RR SYMMETRICAL, NON-LABORED, BREATH SOUNDS CLEAR THROUGHOUT. EDEMA PRESENT ON LIPS AND CHEEKS, NO RASH PRESENT. PT HAS SHELLFISH ALLERGY, BUT DOES NOT KNOW WHAT CAUSED THIS REACTION. PT TOOK BENADRYL AT 2130. PT REPORTS N/D; SKIN IS PINK/WARM/DRY; AAOX4 WITH EVEN AND STEADY GAIT; PATIENT STATES PAIN OF 0/10 AT THIS TIME; VSS; PATIENT POSITIONED FOR COMFORT; HOB ELEVATED; BEDRAILS UP X2; BED DOWN. ER MD MADE AWARE OF PT STATUS. MED HX: HTN, DM II
--- NOTE | 2018-04-10 00:07 | NUR ---
Dr. Retana evaluating patient at bedside.
[2018-04-10] MEDS ORDERED: NACL 0.9% 1,000 ML IV ONE (00:09)
[2018-04-10] MEDS ORDERED: diphenhydrAMINE 50 MG/ML VIAL IVP ONE (00:10)
[2018-04-10] MEDS ORDERED: methylPREDNISolone SS 125 MG in WATER STERILE 2 ML IV ONE (00:10)
[2018-04-10] MEDS ORDERED: FAMOTIDINE 20 MG/2 ML VIAL IVP ONE (00:10)
--- NOTE | 2018-04-10 01:42 | NUR ---
Dr. Retana re-evaluating patient at bedside.
--- NOTE | 2018-04-10 01:45 | NUR ---
ER REEVALUATING PT
[2018-04-10 02:26] VITALS: BP 133/74
--- NOTE | 2018-04-10 02:26 | NUR ---
Patient discharged with v/s stable. Written and verbal after care instructions given and explained. Patient alert, oriented and verbalized understanding of instructions. Ambulatory with steady gait. All questions addressed prior to discharge. ID band removed. Patient advised to follow up with PMD. Rx of EPIPEN, PEPCID, DIPHENHYDRAMINE, AND PREDNISONE given. Patient educated on indication of medication including possible reaction and side effects. Opportunity to ask questions provided and answered.
== END 2018-04-10 02:26 | disposition home or self-care (01) ==
LOC: MED 22:51
DX: T78.3XXA Angioneurotic edema, initial encounter (principal); J45.909 Unspecified asthma, uncomplicated; E11.9 Type 2 diabetes mellitus without complications; I10 Essential (primary) hypertension; Z91.018 Allergy to other foods; Z79.899 Other long term (current) drug therapy; X58.XXXA Exposure to other specified factors, initial encounter
CPT/HCPCS: 96365; 96366; 96372; 96375; 99283; J0171; J1200; J2930; J3490; J7030; 96374

== ENCOUNTER 2018-07-02 00:21 | Emergency (ER) | payer MEDICAID, OTHER ==
[~2018-07-02] VITALS: Ht 152.4 cm; Wt 94.5 kg
[2018-07-02 00:23] VITALS: BP 169/87
--- NOTE | 2018-07-02 00:36 | NUR ---
Patient ambulated to bed 3. RN evaluating patient at bedside.
--- NOTE | 2018-07-02 00:37 | NUR ---
PT AMBULATED TO THE RESTROOM PT TOLERATED WELL
--- NOTE | 2018-07-02 00:59 | NUR ---
PT BIB FAMILY FOR ALLERGIC REACTION. PT REPORTS SWELLING STARTING AROUND MIDNIGHT. PT DENIES EATING ANYTHING DIFFERENT OR NEW MEDICATIONS. PT HAS SWELLING ON BOTTOM LEFT LIP. RR SYMMETRICAL, NON-LABORED, BREATH SOUNDS CLEAR THROUGHOUT, AIRWAY PATENT. PT HAS RECENTLY SWITCHED FROM LISINOPRIL TO METOPROLOL BECAUSE OF ANGIOEDEMA, THEN FROM METOPROLOL TO HYDROCHLOROTHIAZIDE WITHIN THE PAST 2 MONTHS. PT DENIES PAIN. VSS. ER MD TO SEE PT. MEDHX: HTN, DM II RX: HYDROCHLOROTHIAZIDE, GLYBURIDE
--- NOTE | 2018-07-02 01:57 | NUR ---
Dr. Glynn evaluating patient at bedside.
[2018-07-02 02:12] VITALS: BP 163/82
== END 2018-07-02 02:12 | disposition home or self-care (01) ==
LOC: MED 00:21
DX: T78.40XA Allergy, unspecified, initial encounter (principal); J45.909 Unspecified asthma, uncomplicated; E11.9 Type 2 diabetes mellitus without complications; I10 Essential (primary) hypertension; Z90.49 Acquired absence of other specified parts of digestive tract; Z90.710 Acquired absence of both cervix and uterus; Z79.899 Other long term (current) drug therapy; Z91.013 Allergy to seafood; X58.XXXA Exposure to other specified factors, initial encounter
CPT/HCPCS: 81002; 81025; 99283

== ENCOUNTER 2018-08-09 03:05 | Emergency (ER) | payer MEDICAID ==
[~2018-08-09] VITALS: Ht 152.4 cm; Wt 90.7 kg
--- NOTE | 2018-08-09 03:43 | NUR ---
PT TREE ALS. TAKEN TO BED 4
--- NOTE | 2018-08-09 03:48 | NUR ---
Dr. Dickinson evaluating patient at bedside.
[2018-08-09 03:50] VITALS: BP 169/88
[2018-08-09] MEDS ORDERED: diphenhydrAMINE 50 MG/ML VIAL IVP ONE (03:50)
[2018-08-09] MEDS ORDERED: ALBUTEROL SULFATE/IPRATROPIU 3 ML SOL IH ONE ×2 (03:50→04:35)
[2018-08-09] MEDS ORDERED: FAMOTIDINE 20 MG/2 ML VIAL IVP ONE (03:50)
[2018-08-09] MEDS ORDERED: methylPREDNISolone SS 125 MG/2 ML VIAL IVP ONE (03:50)
--- NOTE | 2018-08-09 04:03 | NUR ---
Respiratory Therapist at bedside for respiratory intervention.
--- NOTE | 2018-08-09 04:05 | NUR ---
PT TO ED WITH C/O DIFFICULTY BREATHING. PT THINKS SHE MAY HAVE HAD AN ALLERGIC REACTION-PT UNABLE TO CONFIRM ANY NEW FOODS OR SOAP. LABORED BREATHING UPON ARRIVAL. LUNG SOUNDS DIMINSHED BILATERALLY. PT ARRIVED WITH ALBUETROL BREATHING TX INITIATED BY EMS. PT PLACED INTO BED, ER MD AT BEDSIDE.
--- NOTE | 2018-08-09 04:31 | NUR ---
PT REPORTING RELIEF AFTER LOOPING INSPECTOR AND BREATHING TX - LUNG SOUNDS CLEAR TO ASCULTATION. BREATHING PATTERN IS REGULAR, NO DISTRESS NOTED. PT REMAINS ON SPO2 MONITOR AT BEDSIDE. NO NEW NEEDS OR CONCERNS NOTED.
--- NOTE | 2018-08-09 04:38 | NUR ---
PT NOW REPORTING SOB AND FEELS SHE WILL BENEFIT FROM ANOTHER BREATHING TX. ER MD OLIVAREZ AWARE. ORDER FOR DUONEB RECIEVED.
--- NOTE | 2018-08-09 04:44 | NUR ---
Respiratory Therapist at bedside for respiratory intervention.
[2018-08-09] MEDS ORDERED: ALBUTEROL 0.083% 2.5 MG/3 ML NEBU INH ONE (04:50)
--- NOTE | 2018-08-09 05:36 | NUR ---
PT REPORTS RELIEF AFTER 2ND AND HR LONG BREATHING TX. LUNG SOUNDS CLEAR. PT AMBULATED TO RESTROOM WITHOUT DIFFICULTY.
--- NOTE | 2018-08-09 05:52 | NUR ---
Patient discharged with v/s stable. Written and verbal after care instructions given and explained. Patient alert, oriented and verbalized understanding of instructions. Ambulatory with steady gait. All questions addressed prior to discharge. ID band removed. Patient advised to follow up with PMD. Rx of ALBUTEROL, BENEDRYL, PREDNISONE given. Patient educated on indication of medication including possible reaction and side effects. Opportunity to ask questions provided and answered.
[2018-08-09 05:53] VITALS: BP 148/70
== END 2018-08-09 05:52 | disposition home or self-care (01) ==
LOC: MED 03:05
DX: J45.901 Unspecified asthma with (acute) exacerbation (principal); E11.9 Type 2 diabetes mellitus without complications; I10 Essential (primary) hypertension; Z79.899 Other long term (current) drug therapy; Z91.013 Allergy to seafood
CPT/HCPCS: 94640; 94760; 96374; 96375; 99285; J1200; J2930; J3490; J7613; J7620

== ENCOUNTER 2018-08-15 12:00 | Emergency (ER) | payer MEDICAID ==
[~2018-08-15] VITALS: Ht 152.4 cm; Wt 90.7 kg
[2018-08-15 12:50] VITALS: BP 130/72
--- NOTE | 2018-08-15 12:50 | NUR ---
PATIENT TO CHAIR E WITH SOB TODAY. DENIES PAIN. DIMINISHED BS. LOSS VOICE LAST WEDNESDAY AND SEEN IN ER PER PATIENT. SMITA MADE AWARE
--- NOTE | 2018-08-15 13:24 | NUR ---
PT TO ER BED 3
--- NOTE | 2018-08-15 13:35 | NUR ---
PATIENT PRESENTS TO ED WITH SOB and L shoulder/back pain . PT STATES she "had an allergic reaction last week and has felt SOB since" . DENIES N/V/D; SKIN IS PINK/WARM/DRY; AAOX4 WITH EVEN AND STEADY GAIT; LUNGS CLEAR BL; tachycardia at 111 bpm, ermd aware; PATIENT POSITIONED FOR COMFORT; HOB ELEVATED; BEDRAILS UP X1; BED DOWN. ER MD MADE AWARE OF PT STATUS.
[2018-08-15 14:21] LABS: BASOPHILS % (AUTO) 0.2 % (0.0-2.0); EOSINOPHILS # (AUTO) 0.1 K/uL (0-0.4); EOSINOPHILS % (AUTO) 0.4 % (0.0-4.0); HEMATOCRIT 36.4 % (36-48); LYMPHOCYTES # (AUTO) 4.9 K/uL (2.5-16.5); LYMPHOCYTES % (AUTO) 33.3 % (20.5-51.1); MEAN CORPUSCULAR HEMOGLOBIN 21 pg (27-31); MEAN CORPUSCULAR HGB CONC 30 g/dL (33-37); MONOCYTES # (AUTO) 1.1 K/uL (0.8-1.0); MONOCYTES % (AUTO) 7.5 % (1.7-9.3); NEUTROPHILS # (AUTO) 8.6 K/uL (1.8-7.7); NEUTROPHILS % (AUTO) 58.6 % (42.2-75.2); PLATELET COUNT (AUTO) 378 K/uL (140-450); RED BLOOD CELL COUNT(AUTO) 5.13 MIL/uL (4.20-5.40); RED CELL DISTRIBUTION WIDTH 19.1 % (11.6-13.7); WHITE BLOOD COUNT (AUTO) 14.7 K/uL (4.8-10.8)
--- NOTE | 2018-08-15 14:40 | NUR ---
gave pt urine cup
[2018-08-15 14:49] LABS: ALBUMIN 3.1 g/dL (3.4-5.0); ANION GAP 18.5 (8-16); CARBON DIOXIDE 21.1 mmol/L (21-32); POTASSIUM 3.6 mmol/L (3.5-5.1); TOTAL BILIRUBIN 0.2 mg/dL (0.0-1.0)
[2018-08-15] MEDS ORDERED: HYDROCORTISONE NA SUCC 100 MG/2 ML VIAL IV ONE (15:00)
[2018-08-15] MEDS ORDERED: diphenhydrAMINE 50 MG/ML VIAL IVP ONE (15:00)
--- NOTE | 2018-08-15 15:00 | NUR ---
GIVEN VERBAL ORDER BY DR. TORRES FOR IV CONTRAST, PER RADIOLOGIST PT WILL BE GIVEN SOLU CORTEF 200MG IVP AND BENADRYL 50MG IV PRIOR TO IV CONTRAST ADMINISTRATION.
[2018-08-15] MEDS ORDERED: HYDROCORTISONE NA SUCC 100 MG/2 ML VIAL IV SCH (15:02)
[2018-08-15] MEDS ORDERED: NACL 0.9% 1,000 ML IV ONE ×2 (15:24→15:25)
[2018-08-15] MEDS ORDERED: ALBU0.0912 IH (15:42)
[2018-08-15] MEDS ORDERED: MIC5 PO (15:42)
[2018-08-15] MEDS ORDERED: BEN50 PO (15:42)
--- NOTE | 2018-08-15 16:29 | NUR ---
PT LEFT TO CT
[2018-08-15] MEDS ORDERED: INSULIN REGULAR, HUMAN 100 UNIT/ML VIAL IV SCH (17:40)
[2018-08-15 19:52] VITALS: BP 138/79
--- NOTE | 2018-08-15 19:52 | NUR ---
Patient discharged with v/s stable. Written and verbal after care instructions given and explained. Patient verbalized understanding. Ambulatory with steady gait. All questions addressed prior to discharge. Advised to follow up with PMD.
== END 2018-08-15 19:52 | disposition home or self-care (01) ==
LOC: MED 12:00
DX: T78.40XA Allergy, unspecified, initial encounter (principal); J45.909 Unspecified asthma, uncomplicated; E11.9 Type 2 diabetes mellitus without complications; I10 Essential (primary) hypertension; Z91.013 Allergy to seafood; Z79.899 Other long term (current) drug therapy; X58.XXXA Exposure to other specified factors, initial encounter; Y93.89 Activity, other specified; Y92.89 Other specified places as the place of occurrence of the external cause; Y99.8 Other external cause status
CPT/HCPCS: 36415; 36600; 70491; 71045; 71275; 80053; 82009; 82803; 82948; 84484; 85025; 85379; 96361; 96372; 96374; 96375; 99284; J1200; J1720; J1815; Q0092; Q9967; 93005; J7030

== ENCOUNTER 2019-02-26 20:27 | Emergency (ER) | payer MEDICAID ==
[~2019-02-26] VITALS: Ht 152.4 cm; Wt 93.0 kg
[~2019-02-26 20:27] MED LIST changes: +ALBU0.0912 IH; +BEN50 PO; -FER325 PO; +MIC5 PO; -VITC500 PO
[2019-02-26 20:32] VITALS: BP 175/100
--- NOTE | 2019-02-26 20:38 | NUR ---
PT AMBULATED TO LOBBY.
--- NOTE | 2019-02-26 21:49 | NUR ---
PT TAKEN TO BED 6
--- NOTE | 2019-02-26 21:55 | NUR ---
PT BIB SELF FOR GENERALIZED RASH X2 DAYS. PT STATES SHE HAS BEEN TAKING LEVOFLOXACIN PRIOR TO RASH. RR EVEN AND UNLABORED, BL BS CLEAR. PT SITTING IN BED AWAKE AND ALERT, CALM. AFFECTED AREAS REDDENED, NO OPEN SKIN.
--- NOTE | 2019-02-26 22:07 | NUR ---
Dr. Santizo examining patient.
[2019-02-26 23:18] VITALS: BP 172/97
--- NOTE | 2019-02-26 23:18 | NUR ---
Patient discharged with v/s stable. Written and verbal after care instructions given and explained. Patient alert, oriented and verbalized understanding of instructions. Ambulatory with steady gait. All questions addressed prior to discharge. ID band removed. Patient advised to follow up with PMD. Rx of BENADRYL, PREDNISONE given. Patient educated on indication of medication including possible reaction and side effects. Opportunity to ask questions provided and answered.
== END 2019-02-26 23:18 | disposition home or self-care (01) ==
LOC: MED 20:27
DX: T36.8X5A Adverse effect of other systemic antibiotics, initial encounter (principal); J45.909 Unspecified asthma, uncomplicated; E11.9 Type 2 diabetes mellitus without complications; I10 Essential (primary) hypertension; Z79.51 Long term (current) use of inhaled steroids; Z79.899 Other long term (current) drug therapy; Z91.013 Allergy to seafood; Z88.8 Allergy status to other drugs, medicaments and biological substances; Y92.89 Other specified places as the place of occurrence of the external cause
CPT/HCPCS: 99283

== ENCOUNTER 2019-03-31 15:27 | Inpatient (IN) | payer MEDICAID ==
[2019-03-30 21:00] VITALS: BP 161/91
[~2019-03-31] VITALS: Ht 152.4 cm; Wt 89.8 kg
[2019-03-31] MEDS ORDERED: NACL 0.9% 1,000 ML IV ONE ×2 (15:35)
[2019-03-31] MEDS ORDERED: PIPERACILLIN/TAZOBACTAM 4.5 GM in DEXTROSE 5% 100 ML IV ONE (15:35)
[2019-03-31] MEDS ORDERED: VANCOMYCIN 1,000 MG in DEXTROSE 5% 250 ML IV ONE (15:35)
[2019-03-31 15:36] VITALS: BP 143/85
[2019-03-31] MEDS ORDERED: PIPERACILLIN/TAZOBACTAM 2.25 GM VIAL IV ONE (15:51)
[2019-03-31] MEDS ORDERED: VANCOMYCIN 1,000 MG VIAL ONE (15:52)
[2019-03-31] MEDS ORDERED: ACETAMINOPHEN 325 MG TAB PO ONE (15:55)
[2019-03-31 16:12] LABS: HEMATOCRIT 37.1 % (36-48); HEMOGLOBIN 11.6 g/dL (12.0-16.0); MEAN CORPUSCULAR HEMOGLOBIN 24 pg (27-31); MEAN CORPUSCULAR HGB CONC 31 g/dL (33-37); MEAN CORPUSCULAR VOLUME 75.3 fL (80-94); PLATELET COUNT (AUTO) 288 K/uL (140-450); RED BLOOD CELL COUNT(AUTO) 4.92 MIL/uL (4.20-5.40); RED CELL DISTRIBUTION WIDTH 23.7 % (11.6-13.7); WHITE BLOOD COUNT (AUTO) 21.6 K/uL (4.8-10.8)
--- NOTE | 2019-03-31 16:30 | NUR ---
PT BIB AMBULANCE TO THE ED WITH THE C/O FLU SYMPTOMS, N,V,D. PT REPORTS VOMITING X6 TODAY AND HAVING DIARRHEA FOR A WEEK. NO BLOOD IN VOMIT OR DIARRHEA. BOWEL SOUNDS ACTIVE IN ALL QUADRANTS. PT IS TACHYCARDIC, ER MD AWARE. PT STATES HAVING LOWER BACK PAIN THAT RADIATES TO LEGS BILATERALLY, PT STATES "IT HURTS" AND RATES PAIN 10/10 AT THIS TIME. SKIN IS WARM, PINK, AND DRY. PT PRESENTS WITH A CLEAR SPEECH AND CONVERSES APPROPRIATELY. PT POSITIONED FOR COMFORT, HOB ELEVATED, BED RAILS UP X 2 FOR PT SAFETY. ER MD AWARE OF PT STATUS. PMH: DM, HTN RX: METFORMIN ALLERGY: LEVOFLOXACIN
[2019-03-31] MEDS ORDERED: MORPHINE SULFATE 4 MG/ML SYR IVP ONE (16:40)
[2019-03-31 16:41] LABS: PROTHROMBIN TIME 9.9 secs (10.8-13.4)
[2019-03-31 16:42] LABS: ALBUMIN 2.8 g/dL (3.4-5.0); ANION GAP 20.8 (8-16); CARBON DIOXIDE 21.5 mmol/L (21-32); CREATININE 0.9 mg/dL (0.6-1.3); POTASSIUM 3.3 mmol/L (3.5-5.1); TOTAL BILIRUBIN 0.6 mg/dL (0.0-1.0)
[2019-03-31 16:44] LABS: BASOPHILS % (MANUAL) 0 % (0-2); EOSINOPHILS % (MANUAL) 0 % (0-4); LYMPHOCYTES % (MANUAL) 10 % (20-46); MONOCYTES % (MANUAL) 4 % (5-12)
--- NOTE | 2019-03-31 16:53 | NUR ---
LACTIC ACID 3.2. DR. HIDALGO MADE AWARE.
--- NOTE | 2019-03-31 17:10 | NUR ---
Oral temperature of 101.9. Dr. Street made aware.
--- NOTE | 2019-03-31 17:20 | NUR ---
PT AMBULATED TO THE BATHROOM WITH ASSISTANCE.
[2019-03-31 17:21] LABS: CREATINE KINASE MB 0.3 ng/mL (0-3.6)
[2019-03-31] MEDS ORDERED: ONDANSETRON 4 MG/2 ML VIAL IVP ONE (17:25)
--- NOTE | 2019-03-31 17:29 | NUR ---
ORAL TEMP 100.7
--- NOTE | 2019-03-31 17:32 | NUR ---
DAUGHTER AT BEDSIDE WITH PT.
[2019-03-31] MEDS ORDERED: FLUT1POW3 IH (17:37)
[2019-03-31] MEDS ORDERED: FLUT1BLS IH (17:37)
[2019-03-31] MEDS ORDERED: FLONAS NS (17:37)
[2019-03-31] MEDS ORDERED: LEVA0.043 IH (17:37)
[2019-03-31] MEDS ORDERED: METF1000 PO (17:37)
[2019-03-31 17:43] LABS: APPEARANCE,URINE CLEAR (CLEAR); BILIRUBIN,URINE NEGATIVE (NEGATIVE); BLOOD, URINE 1+ (NEGATIVE); COLOR,URINE YELLOW (YELLOW); LEUKOCYTE ESTERASE ,URINE NEGATIVE (NEGATIVE); NITRITE, URINE NEGATIVE (NEGATIVE); PH,URINE 5.5 (5.0-9.0); UGLUCOSE 3+ (NEGATIVE)
[2019-03-31 17:59] LABS: RBC,URINE 0-5 /HPF (0-5); WBC,URINE 0-5 /HPF (0-5); YEAST,URINE Rare /HPF (None Seen)
--- NOTE | 2019-03-31 18:00 | NUR ---
PT REPOSITIONED FOR COMFORT, DAUGHTER AT BEDSIDE. WILL CONTINUE TO MONITOR.
--- NOTE | 2019-03-31 18:15 | NUR ---
PT REPORTS SEVERE ALLERGY TO IODINE.
--- NOTE | 2019-03-31 18:56 | NUR ---
PT TO CT SCAN VIA WHEELCHAIR.
--- NOTE | 2019-03-31 19:01 | NUR ---
PT returned from CT and placed in bed 7.
--- NOTE | 2019-03-31 19:17 | NUR ---
Pt report given to YASMIN PEREIRA. Transfer of care at this time.
[2019-03-31] MEDS: NACL 0.9% 1,000 ML IV SCH (20:29)
[2019-03-31] MEDS ORDERED: HYDROcodone/APAP 7.5/325 MG 1 TAB PO PRN (20:30)
[2019-03-31] MEDS ORDERED: ONDANSETRON 4 MG/2 ML VIAL IM/IVP PRN (20:30)
[2019-03-31] MEDS ORDERED: DOCUSATE SODIUM 100 MG GELCAP PO PRN (20:30)
[2019-03-31] MEDS ORDERED: MORPHINE SULFATE 2 MG/ML SYR IVP PRN (20:30)
--- NOTE | 2019-03-31 20:45 | NUR ---
PATIENT SITTING QUIETLY IN BED. DAUGHTER AT BEDSIDE.
[2019-03-31] MEDS ORDERED: CETI-32 PO (20:58)
--- NOTE | 2019-03-31 21:00 | NUR ---
PT BROUGHT UP GURNEY TO ROOM 111, PT AMBULATED WITH ASSISTANCE TO BED B. PT IS AOX4 BILINGUAL AND HAS SKIN INTACT. PT HAS 2 IV SITES 20G ON LEFT AND RIGHT HAND. PT C/ 12/17 PAIN IN LEGS, PT MOANING AND RESTLESS. MD LEE ORDERED IVP TORADOL 15MG Q 6HR. WILL MONITOR FOR PAIN. MRSA SWAB DONE AND ADMISSION QUESTIONS ASKED AT BEDSIDE, PT PLACED ON FALLS PRECAUTIONS DUE TO NEEDING ASSISTANCE TO AMBULATE. V/S FOLLOWS: T 98.3 P 106 R 18 B/P 161/91 02 97% ON ROOM AIR. PT PLACED ON TELEMETRY MONITORING.
--- NOTE | 2019-03-31 21:02 | NUR ---
Admited TELE . Will go to room 111B. Belongings list completed. Report to .
[2019-03-31] MEDS ORDERED: LEVALBUTEROL TARTRATE 0.045 MG IH SCH (21:15)
[2019-03-31] MEDS ORDERED: DEXTROSE 50% 50 ML SYR IVP PRN (21:20)
[2019-03-31] MEDS ORDERED: KETOROLAC 15 MG/ML VIAL IVP PRN (21:20)
[2019-03-31] MEDS ORDERED: KETOROLAC 15 MG/ML VIAL ONE (21:31)
[2019-03-31 21:42] LABS: MAGNESIUM 1.7 mg/dL (1.8-2.4); PHOSPHORUS 1.7 mg/dL (2.5-4.9); THYROID STIMULATING HORMONE 1.98 uIU/mL (0.34-3.74)
--- NOTE | 2019-03-31 22:00 | NUR ---
PT GIVEN IV ABT ROCEPHIN ORDERED. PT HAS SOME RELIEF OF PAIN , BUT STILL SEEMS TO HAVE PERIODIC SPAMS IN LEGS.
[2019-03-31] MEDS ORDERED: cefTRIAXone 1,000 MG VIAL ONE (22:12)
[2019-04-01] VITALS: BP 142/85
[2019-04-01] MEDS ORDERED: CYCLOBENZAPRINE 10 MG TAB PO SCH (00:30)
--- NOTE | 2019-04-01 00:30 | NUR ---
PT IN BED , SHE STILL C/O OF SEVERE PAIN 7-8/10 LEG CRAMPS . SPOKE WITH MD LEE RESIDENT MD, HE ORDERED 10MG OF FLEXERIL FOR MUSCLE CRAMPS. PT ALSO GIVEN TYLENOL FOR INCREASED TEMP. IV SITES INTACT AND LEFT HAND RUNNING N/S AT 130. PT WAS STANDBY ASSISTANCE TO TOILET AND BACK AND WAS ABLE TO AMBULATE WITH A STEADY GAIT. ALL FALLS PRECAUTIONS IN PLACE AND CALL [facility] IN [place].
[2019-04-01] MEDS: ACETAMINOPHEN 325 MG TAB PO PRN ×2 (00:51→21:21)
--- NOTE | 2019-04-01 02:30 | NUR ---
PT IN BED ASLEEP, NO S/S OF PAIN OR DISTRESS NOTED. IV SITE ON LEFT HAND INTACT AND N/S RUNNING AT 130 ORDERED. ALL FALLS AND CONTACT PRECAUTIONS IN PLACE.
[2019-04-01 04:00] VITALS: BP 157/76
--- NOTE | 2019-04-01 04:00 | NUR ---
PT IN BED 4 AM V/S FOLLOWS: T 99.7 P 104 R 18 B/P 157/76 02 94% ON ROOM AIR. ALL FALLS PRECAUTIONS IN PLACE.
[2019-04-01] MEDS: INSULIN LISPRO SLIDING SCALE 100 UNITS/ML VIAL SUBQ PRN ×4 (06:00→21:42)
[2019-04-01] MEDS: NACL 0.9% 1,000 ML IV SCH ×3 (06:05→19:45)
[2019-04-01] MEDS: BLOOD GLUCOSE MONITORING 1 DEV DEV FS SCH ×4 (06:05→21:39)
[2019-04-01] MEDS: KETOROLAC 15 MG/ML VIAL IVP PRN ×2 (06:07→13:35)
[2019-04-01 06:25] LABS: HEMATOCRIT 36.8 % (36-48); HEMOGLOBIN 11.4 g/dL (12.0-16.0); MEAN CORPUSCULAR HEMOGLOBIN 24 pg (27-31); MEAN CORPUSCULAR HGB CONC 31 g/dL (33-37); MEAN CORPUSCULAR VOLUME 76.3 fL (80-94); PLATELET COUNT (AUTO) 244 K/uL (140-450); RED BLOOD CELL COUNT(AUTO) 4.82 MIL/uL (4.20-5.40); WHITE BLOOD COUNT (AUTO) 17.9 K/uL (4.8-10.8)
--- NOTE | 2019-04-01 06:34 | NUR ---
PT GIVEN TORADOL IVP FOR C/O OF SEVERE CRAMPS IN LEGS. NS BAG REPLACED AND IS RUNNING NS AT 130. FINGERSTICK IS 255, PT GIVEN 6 UNITS OF HUMALOG COVERAGE. ALL FALLS PRECAUTIONS IN PLACE AND CALL ACEVEDO IN REACH.
[2019-04-01 06:41] LABS: CREATININE 0.6 mg/dL (0.6-1.3)
[2019-04-01 06:52] LABS: MAGNESIUM 1.8 mg/dL (1.8-2.4); PHOSPHORUS 1.9 mg/dL (2.5-4.9)
[2019-04-01 06:54] LABS: CHOL/HDL RATIO 2.4 (1-4.5)
[2019-04-01 07:16] LABS: ANION GAP 14.6 (8-16); CARBON DIOXIDE 24.8 mmol/L (21-32); POTASSIUM 3.4 mmol/L (3.5-5.1)
--- NOTE | 2019-04-01 07:20 | NUR ---
RECEIVED REPORT FROM NIGHT NURSE. PATIENT IS IN BED, ALERT, AWAKE AND ORIENTED X4. NO S/S OF DISTRESS NOTED. IVF NS INFUSING AT 130ML/HR VIA PERIPHERAL IV TO LEFT HAND. INTACT AND PATENT. BED IN LOW POSITION. CALL LIGHT WITHIN REACH.
[2019-04-01 07:25] LABS: BASOPHILS % (MANUAL) 0 % (0-2); EOSINOPHILS % (MANUAL) 0 % (0-4); LYMPHOCYTES % (MANUAL) 10 % (20-46); MONOCYTES % (MANUAL) 8 % (5-12)
[2019-04-01 08:00] VITALS: BP 141/70
[2019-04-01] MEDS: metFORMIN 500 MG TAB PO SCH ×2 (08:15→16:49)
[2019-04-01] MEDS: LACTOBACILLUS RHAMNOSUS GG 1 EACH CAP PO SCH (08:15)
[2019-04-01] MEDS ORDERED: CARISOPRODOL 350 MG TAB PO SCH (08:30)
--- NOTE | 2019-04-01 08:30 | NUR ---
AM MEDICATIONS GIVEN AND TOLERATED WELL. PATIENT IS ALERT AND ORIENTED X4, LAYING IN BED, QUIETLY RESTING. RESPIRATION EVEN AND UNLABORED. DENIES PAIN OR DISCOMFORT. NS INFUSING AT 130ML/HR , TOLERATING WELL VIA LEFT HAND PERIPHERAL IV. AMBULATES TO THE BATHROOM WITH STEADY GAIT.
[2019-04-01] MEDS ORDERED: NON-FORMULARY ITEM (Cetirizine HCl (Zyrtec) 1 TAB) PO SCH (09:00)
[2019-04-01] MEDS ORDERED: FLUTICASONE IH SCH (09:00)
[2019-04-01] MEDS ORDERED: VILANTEROL IH SCH (09:00)
--- NOTE | 2019-04-01 11:07 | NUR ---
PATIENT IS ALERT AND ORIENTED X4, LAYING IN BED, QUIETLY RESTING. RESPIRATION EVEN AND UNLABORED. DENIES PAIN OR DISCOMFORT. AMBULATED TO THE BATHROOM WITH STEADY GAIT. CALL LIGHT WITHIN REACH.
--- NOTE | 2019-04-01 11:30 | NUR ---
GRAM NEGATIVE RODS RESULT FROM AEROBIC BLOOD CULTURE BOTTLES PER PIZZA DELIVERY DRIVER SURI. DR. DAUGHERTY MADE AWARE. NO ORDERS AT THIS TIME.
[2019-04-01 11:56] VITALS: BP 154/80
--- NOTE | 2019-04-01 12:18 | NUR ---
DC PLANNING 48 YRS OLD FEMALE WAS ADMITTED FROM HOME WITH A DX OF SEPSIS AND TACHYCARDIA . PT HAS MEDICAL HISTORY OF HTN AND DM. PT STATED HAS ALLERGIC REACTION TO SEAFOOD 2 DAYS AGO. PATIENT WAS PLACED ON FAMILY SERVICES COORDINATOR AND CONTINUES PULSE OX ,IVF ,VANCO AND ZOSYN IV ABX FOR SEPSIS AND ALSO MORPHINE FOR PAIN. CT ABD/PELVIS SUSPICIOUS FOR POSSIBLE PYELONEPHRITIS. DC PLAN TO GO HOME WHEN STABLE CM TO FOLLOW Addendum: 04/03/19 at 1239 by Kayleigh Johnson STILL ON ROCEPHIN. WBC 9.8. ID CONSULT WITH DR ARIANE MOSER: BACTEREMIA, PYELONEPHRITIS. DC PLAN PENDING ON PATIENT'S RESPONSE TO TREATMENT. Addendum: 04/04/19 at 1212 by Milly Saldivar DC PLANNING: PATIENT IS STABLE TO BE DISCHARGED HOME WITH NO NEEDS
[2019-04-01] MEDS ORDERED: POTASSIUM CHLORIDE 10 MEQ TABER PO SCH (13:20)
--- NOTE | 2019-04-01 13:40 | NUR ---
PT IS SITTING IN BED, EATING LUNCH AT THIS TIME. FAMILY AT BEDSIDE. PT REPORTS PAIN 8/10 TO BILATERAL LOWER EXTREMITIES, MEDICATED ORDERED. NO S/S OF DISTRESS NOTED.
[2019-04-01] MEDS ORDERED: SODIUM PHOS / POTASSIUM PHOS 1 PKT PDR PO SCH (14:30)
--- NOTE | 2019-04-01 15:02 | NUR ---
PATIENT REPORTS DECREASED PAIN TO BILATERAL EXTREMITIES. PHOS NAK GIVEN PO ORDERED. PT ALERT AND ORIENTED X4. IV INTACT AND PATENT TO LEFT HAND WITH IVF NS INFUSING AT 130ML/HR. AMBULATED TO THE RESTROOM WITH STEADY GAIT. NO S/S OF DISTRESS. PATIENT'S FAMILY AT BEDSIDE.
[2019-04-01 16:00] VITALS: BP 130/70
--- NOTE | 2019-04-01 16:21 | NUR ---
PATIENT HAS BEEN SCREENED AND CATEGORIZED HIGH NUTRITION RISK. PATIENT WILL BE SEEN WITHIN 1-2 DAYS OF ADMISSION. 04/01/19 - 04/02/19 KILO ESTRADA MBA, RD
[2019-04-01] MEDS: FERROUS SULFATE 325 MG TABEC PO SCH (16:49)
--- NOTE | 2019-04-01 17:45 | NUR ---
PATIENT AWAKE, ALERT AND ORIENTED X4. BLOOD SUGAR 250, HUMALOG COVERAGE 4 UNITS GIVEN ORDERED. PATIENT RECEIVED DINNER TRAY NOW. NO S/S OF DISTRESS NOTED. IVF NS INFUSING AT NS 130ML/HR VIA LEFT HAND PIV, INTACT AND PATENT. NEEDS MET AT THIS TIME. CALL LIGHT WITHIN REACH.
[2019-04-01 18:38] LABS: BARBITURATE, URINE NEG. ng/ml (NEG <=200); BENZODIAZEPINE, URINE NEG. ng/mL (NEG <=200); CANNABINOID, URINE NEG. ng/mL (NEG <=50); COCAINE, URINE NEG. ng/mL (NEG <=300); OPIATE, URINE NEG. ng/mL (NEG <=2000); PHENCYCLIDINE SCREEN,URINE NEG. ng/mL (NEG <=25)
--- NOTE | 2019-04-01 19:02 | NUR ---
PATIENT IN STABLE CONDITION. NO ACUTE S/S OF DISTRESS NOTED. WILL ENDORSE TO MANAGER PEDIATRIC NURSE FOR CONTINUITY OF CARE.
--- NOTE | 2019-04-01 19:05 | NUR ---
RECD. RESTING IN BED AWAKE, A/OX4. RESPIRATION EVEN AND UNLABORED. IV OF NS AT 10 ML/HR INFUSING LEFT HAND G20. ABLE TO AMBULATE TO THE BATHROOM. STATED SHE IS STILL HAVING DIARRHEA. ADVISED NOT TO FLUSH AND TO CALL NURSE TO BE ABLE TO CHECK STOOL. SAFETY MEASURES ENFORCED, BED IN THE LOWEST POSITION, CALL LIGHT IN REACH. INSTRUCTED TO CALL NURSE FOR ASSISTANCE WHEN GETTING OUT OF BED. PLAN OF CARE FOR THE SHIFT DISCUSSED. VERBALIZED UNDERSTANDING. DENIES PAIN 0/10.
[2019-04-01 20:00] VITALS: BP 151/72
[2019-04-01] MEDS: FLUTICASONE NASAL 50 MCG/ACTUATION 16 GM BTL NS SCH (21:21)
--- NOTE | 2019-04-01 21:30 | NUR ---
REVIEWED AND DISCUSSED PLAN OF CARE WITH MAURICIO GAVIN LVN
--- NOTE | 2019-04-01 22:30 | NUR ---
HAD LOOSE BM TWICE, RENETTA Addendum: 04/02/19 at 0121 by Jennifer Weber LVN ERROR: PLEASE DISREGARD THIS CHARTING.
--- NOTE | 2019-04-01 22:30 | NUR ---
HAD LOOSE BM TWICE, BLACK IN COLOR, MODERATE AMOUNT.
--- NOTE | 2019-04-01 23:30 | NUR ---
DR. THAKKAR CAME, WILL FOLLOW UP WITH ANY NEW ORDER.
[2019-04-02] VITALS: BP 143/52
--- NOTE | 2019-04-02 01:30 | NUR ---
SITTING ON BED,
--- NOTE | 2019-04-02 01:30 | NUR ---
SITTING ON BED, GOT TIRED AFTER AMBULATING TO BR. HR INCREASES EVERY TIME PT GOES TO BR, 130-134.
[2019-04-02] MEDS: NACL 0.9% 1,000 ML IV SCH ×4 (02:16→19:08)
--- NOTE | 2019-04-02 02:30 | NUR ---
SLEEPING COMFORTABLY IN BED.
[2019-04-02 04:00] VITALS: BP 152/72
[2019-04-02] MEDS: ACETAMINOPHEN 325 MG TAB PO PRN (06:02)
--- NOTE | 2019-04-02 06:03 | NUR ---
HAD HEADACHE TWICE, MEDICATED WITH TYLENOL 650 MG. ORDERED.
[2019-04-02] MEDS: BLOOD GLUCOSE MONITORING 1 DEV DEV FS SCH ×4 (06:17→20:36)
[2019-04-02] MEDS: INSULIN LISPRO SLIDING SCALE 100 UNITS/ML VIAL SUBQ PRN ×4 (06:19→20:38)
[2019-04-02] MEDS ORDERED: AZITHROMYCIN 250 MG TAB PO SCH (06:30)
[2019-04-02 06:36] LABS: BASOPHILS % (AUTO) 0.1 % (0.0-2.0); EOSINOPHILS % (AUTO) 0.3 % (0.0-4.0); HEMATOCRIT 33.2 % (36-48); HEMOGLOBIN 10.2 g/dL (12.0-16.0); LYMPHOCYTES # (AUTO) 1.6 K/uL (2.5-16.5); MEAN CORPUSCULAR HEMOGLOBIN 23 pg (27-31); MEAN CORPUSCULAR HGB CONC 31 g/dL (33-37); MEAN CORPUSCULAR VOLUME 76.3 fL (80-94); MONOCYTES # (AUTO) 1.4 K/uL (0.8-1.0); NEUTROPHILS # (AUTO) 9.5 K/uL (1.8-7.7); PLATELET COUNT (AUTO) 245 K/uL (140-450); RED BLOOD CELL COUNT(AUTO) 4.35 MIL/uL (4.20-5.40); RED CELL DISTRIBUTION WIDTH 22.9 % (11.6-13.7); WHITE BLOOD COUNT (AUTO) 12.6 K/uL (4.8-10.8)
[2019-04-02] MEDS: KETOROLAC 15 MG/ML VIAL IVP PRN ×2 (06:41→20:09)
--- NOTE | 2019-04-02 06:41 | NUR ---
STILL WITH HEADACHE, TYLENOL IS NOT HELPING, DR. DAUGHERTY WANTS PATIENT TO BE GIVEN TORADOL. WAS GIVEN BY YASMIN ALMAZAN.
--- NOTE | 2019-04-02 06:58 | NUR ---
AZITHROMYCIN 1000 MG. PO GIVEN, ONE TIME DOSE PER MD ORDER.
[2019-04-02 06:59] LABS: ANION GAP 15.6 (8-16); CARBON DIOXIDE 24.3 mmol/L (21-32); CREATININE 0.5 mg/dL (0.6-1.3)
[2019-04-02 07:07] LABS: MAGNESIUM 1.8 mg/dL (1.8-2.4); PHOSPHORUS 1.7 mg/dL (2.5-4.9); POTASSIUM 2.9 mmol/L (3.5-5.1)
--- NOTE | 2019-04-02 07:15 | NUR ---
CONDITION REMAIN STABLE. ENDORSED TO AM SHIFT NURSE FOR CONTINUITY OF CARE.
--- NOTE | 2019-04-02 07:20 | NUR ---
RECEIVED BEDSIDE REPORT FROM NIGHTSHIFT NURSE. PATIENT IS RESTING IN BED UPON ARRIVAL. ALERT AND ORIENTED X4. ABLE TO MAKE NEEDS KNOWN. RESPIRATIONS EVEN AND UNLABORED WITH NO SOB OR RESPIRATORY DISTRESS. SKIN WARM AND DRY TO TOUCH. NO COMPLAINTS OR CONCERNS AT THIS TIME. SAFETY MEASURES: HOB ELEVATED, BED IN LOWEST POSITION, CALL LIGHT WITHIN REACH, AND BED ALARM ACTIVATED.
[2019-04-02 07:36] LABS: MONOCYTES % (AUTO) 10.9 % (1.7-9.3); NEUTROPHILS % (AUTO) 75.7 % (42.2-75.2)
[2019-04-02 08:00] VITALS: BP 157/78
[2019-04-02] MEDS: LACTOBACILLUS RHAMNOSUS GG 1 EACH CAP PO SCH (08:47)
[2019-04-02] MEDS: FERROUS SULFATE 325 MG TABEC PO SCH ×2 (08:47→17:09)
[2019-04-02] MEDS: metFORMIN 500 MG TAB PO SCH ×2 (08:48→17:09)
--- NOTE | 2019-04-02 08:51 | NUR ---
ADMINISTERED MEDICATIONS PRESCRIBED BY THE MD. PATIENT SITTING ON THE SIDE OF THE BED UPON ARRIVAL. NO COMPLAINTS OR CONCERNS AT THIS TIME. PT TOLERATED WELL. EDUCATED PATIENT ON MEDICATION REGIMEN. PATIENT WAS ABLE TO VERBALIZE UNDERSTANDING AND TEACH BACK. SAFETY MEASURES IN PLACE: HOB ELEVATED, TELE MONITOR ATTACHED, BED IN LOWEST POSITION, CALL LIGHT WITHIN REACH, AND BED ALARM ACTIVATED.
--- NOTE | 2019-04-02 09:45 | NUR ---
PATIENT IS RESTING ON BED AT THIS TIME. NO SIGNS OF DISTRESS NOTED. TELE MONITOR ATTACHED. SAFETY MEASURES IN PLACE. BED IN LOW POSITION AND CALL LIGHT WITHIN REACH.
[2019-04-02] MEDS ORDERED: POTASSIUM PHOSPHATE 15 MM in NACL 0.9% 250 ML IV SCH (10:00)
[2019-04-02] MEDS ORDERED: POTASSIUM CHLORIDE 10 MEQ TABER PO SCH (10:00)
--- NOTE | 2019-04-02 10:28 | NUR ---
ADMINISTERED POTASSIUM VIA IV AND PO, PATIENT TOLERATED WELL. MEDS EDUCATION PROVIDED AND PATIENT VERBALIZED UNDERSTANDING. PATIENT IS AWAKE AND RESTING ON BED AT THIS TIME. DENIED PAIN, SOB AND NAUSEA. NO SIGNS OF DISTRESS NOTED. SAFETY MEASURES IN PLACE. BED IN LOW POSITION AND CALL LIGHT WITHIN REACH. INSTRUCTED PATIENT TO USE THE CALL LIGHT FOR ANY ASSISTANCE AND PATIENT WAS AWARE. TELE MONITOR ATTACHED.
--- NOTE | 2019-04-02 11:26 | NUR ---
PATIENT IN BED ASLEEP. RESPONSIVE TO VERBAL STIMULI. RESPIRATIONS EVEN AND UNLABORED. NO SOB OR RESPIRATORY DISTRESS. ADMINISTERED IVF PRESCRIBED BY MD. SAFETY MEASURES: HOB ELEVATED, BED IN LOWEST POSITION, BED ALARM ACTIVATED, CALL LIGHT WITHIN REACH.
[2019-04-02 12:00] VITALS: BP 139/75
--- NOTE | 2019-04-02 12:09 | NUR ---
PATIENT IS RESTING IN BED UPON ARRIVAL. ADMINISTERED 4 UNITS OF INSULIN DUE TO HER BLOOD SUGAR BEING 233. MEDICATION EDUCATION PERFORMED. PATIENT WAS ABLE TO VERBALIZE INSTRUCTIONS AND TEACH BACK. PATIENT IS GETTING READY TO EAT LUNCH.
--- NOTE | 2019-04-02 13:21 | NUR ---
PATIENT IS ASLEEP IN BED. PATIENT AROUSABLE TO VOICE. RESPIRATIONS EVEN AND UNLABORED WITH NO SOB OR RESPIRATORY DISTRESS. TELE MONITOR ATTACHED, HOB ELEVATED, BED IN LOWEST POSITION, AND CALL LIGHT WITHIN REACH.
--- NOTE | 2019-04-02 14:27 | NUR ---
PATIENT IS RESTING IN BED. ABLE TO MAKE NEEDS KNOWN. RESPIRATIONS EVEN AND UNLABORED WITH NO SOB OR RESPIRATORY DISTRESS. SKIN WARM AND DRY TO TOUCH. NO COMPLAINTS OR CONCERNS AT THIS TIME. SAFETY MEASURES: HOB ELEVATED, BED IN LOWEST POSITION, CALL LIGHT WITHIN REACH. BED ALARM ACTIVATED, TELE MONITOR ATTACHED. WILL CONTINUE TO MONITOR
--- NOTE | 2019-04-02 15:19 | NUR ---
PATIENT AWAKE AND RESTING IN BED WITH A VISITOR AT BEDSIDE. ABLE TO MAKE NEEDS KNOWN. NO CONCERNS OR QUESTIONS AT THIS MOMENT. RESPIRATIONS EVEN AND UNLABORED WITH NO SOB OR RESPIRATORY DISTRESS. SKIN WARM AND DRY TO TOUCH. SAFETY MEASURES: HOB ELEVATED, BED IN LOWEST POSITION, CALL LIGHT WITHIN REACH, BED ALARMS ACTIVATED, AND TELE MONITORS ATTACHED. WILL CONTINUE TO MONITOR
[2019-04-02 16:00] VITALS: BP 157/78
--- NOTE | 2019-04-02 17:09 | NUR ---
ADMINISTERED MEDS PER MD ORDER, MEDS EDUCATION PROVIDED TO PATIENT AND PATIENT VERBALIZED UNDERSTANDING. PATIENT AWAKE AND SITTING UP ON BED TALKING TO DAUGHTER LESSY AT BEDSIDE. DENIED SOB, NAUSEA, AND PAIN. NO SIGNS OF DISTRESS NOTED. TELE MONITOR ATTACHED. BED IN LOW POSITION AND CALL LIGHT WITHIN REACH. INSTRUCTED PATIENT TO USE THE CALL LIGHT FOR ANY ASSISTANCE AND PATIENT WAS AWARE.
--- NOTE | 2019-04-02 19:10 | NUR ---
RECD. RESTING IN BED, AWAKE, A/OX4. RESPIRATION EVEN AND UNLABORED. IV OF NS AT 130 ML/HR INFUSING LEFT HAND G20. STATED SHE IS STILL HAVING DIARRHEA. WILL CONTINUE TO MONITOR BM. PLAN OF CARE FOR THE SHIFT DISCUSSED. VERBALIZED UNDERSTANDING. DENIES PAIN 0/10.
--- NOTE | 2019-04-02 19:11 | NUR ---
Patient's Plan of Care was discussed and reviewed with SENIOR NET SOFTWARE DEVELOPER: MAURICIO. WILL ROUND FREQUENTLY
[2019-04-02 20:00] VITALS: BP 130/76
--- NOTE | 2019-04-02 20:36 | NUR ---
SNACK GIVEN FOR THE NIGHT.
[2019-04-02] MEDS: INSULIN LANTUS 100 UNITS/ML 10 ML VIAL SUBQ SCH (20:43)
[2019-04-02] MEDS: FLUTICASONE NASAL 50 MCG/ACTUATION 16 GM BTL NS SCH (21:00)
--- NOTE | 2019-04-02 22:19 | NUR ---
PATIENT IS SITTING UP AT SIDE OF BED DENIES ANY PAIN. ROCEPHIN NOW INFUSING PER ORDERS. CALL LIGHT IS WITHIN REACH. WILL CONTINUE TO MONITOR.
[2019-04-03] VITALS: BP 148/79
--- NOTE | 2019-04-03 | NUR ---
SLEEPING COMFORTABLY IN BED.
--- NOTE | 2019-04-03 | NUR ---
RESTING IN BED WHEN INQUIRED IF SHE HAS DIARRHEA, STATED SHE JUST WENT TO BR BUT NO DIARRHEA.
[2019-04-03] MEDS: NACL 0.9% 1,000 ML IV SCH ×4 (02:33→18:31)
[2019-04-03 04:00] VITALS: BP 146/77
--- NOTE | 2019-04-03 04:00 | NUR ---
NO COMPLAINT OF PAIN, VS STABLE.
[2019-04-03] MEDS: BLOOD GLUCOSE MONITORING 1 DEV DEV FS SCH ×4 (05:57→20:58)
[2019-04-03] MEDS: INSULIN LISPRO SLIDING SCALE 100 UNITS/ML VIAL SUBQ PRN ×4 (06:00→20:55)
--- NOTE | 2019-04-03 07:00 | NUR ---
HAD ONLY ONE TIME BM SINCE BEGINNING OF SHIFT, MODERATE AMOUNT, SOFT. CONDITION REMAIN STABLE. WILL ENDORSE TO AM SHIFT NURSE FOR CONTINUITY OF CARE.
[2019-04-03 07:03] LABS: BASOPHILS % (AUTO) 0.2 % (0.0-2.0); EOSINOPHILS # (AUTO) 0.1 K/uL (0-0.4); EOSINOPHILS % (AUTO) 1.3 % (0.0-4.0); HEMATOCRIT 33.1 % (36-48); HEMOGLOBIN 10.3 g/dL (12.0-16.0); LYMPHOCYTES # (AUTO) 2.3 K/uL (2.5-16.5); LYMPHOCYTES % (AUTO) 23.5 % (20.5-51.1); MEAN CORPUSCULAR HEMOGLOBIN 24 pg (27-31); MEAN CORPUSCULAR HGB CONC 31 g/dL (33-37); MEAN CORPUSCULAR VOLUME 75.6 fL (80-94); MONOCYTES # (AUTO) 0.9 K/uL (0.8-1.0); MONOCYTES % (AUTO) 9.5 % (1.7-9.3); NEUTROPHILS # (AUTO) 6.4 K/uL (1.8-7.7); NEUTROPHILS % (AUTO) 65.5 % (42.2-75.2); PLATELET COUNT (AUTO) 252 K/uL (140-450); RED BLOOD CELL COUNT(AUTO) 4.38 MIL/uL (4.20-5.40); RED CELL DISTRIBUTION WIDTH 22.4 % (11.6-13.7); WHITE BLOOD COUNT (AUTO) 9.8 K/uL (4.8-10.8)
--- NOTE | 2019-04-03 07:20 | NUR ---
RECEIVED BEDSIDE REPORT FROM PAN PUSHER NURSE, PT IS AWAKE AND ALERT, FALL PRECAUTIONS IN PLACE HOWEVER PT IS ABLE TO AMBULATE STEADILY IN THE ROOM. PT IS ON ROOM AIR, SKIN INTACT. IV SITE L FA 22 G, INFUSING NS 130 ML/HR. PT C/O HEADACHE, WILL MEDICATE. CALL LIGHT IS WITHIN REACH.
[2019-04-03 08:00] VITALS: BP 160/86
[2019-04-03 08:01] LABS: CREATININE 0.5 mg/dL (0.6-1.3)
[2019-04-03] MEDS: KETOROLAC 15 MG/ML VIAL IVP PRN (09:01)
[2019-04-03] MEDS: metFORMIN 500 MG TAB PO SCH ×2 (09:01→16:34)
[2019-04-03] MEDS: FERROUS SULFATE 325 MG TABEC PO SCH ×2 (09:01→16:34)
[2019-04-03] MEDS: LACTOBACILLUS RHAMNOSUS GG 1 EACH CAP PO SCH (09:01)
--- NOTE | 2019-04-03 09:06 | NUR ---
AM MEDS ADMINISTERED. PT TOLERATED WELL. PRN TORADOL GIVEN FOR HEADACHE, WILL REASSESS WITHIN AN HOUR.
--- NOTE | 2019-04-03 09:15 | NUR ---
NUTRITIONAL INITIAL ASSESSMENT NOTE COMPLETED ON 04/01/[address] NOTE WILL BE FOUND ON PATIENTS PHYSICAL CHART UNDER MISCELLANEOUS. PATIENT WILL BE FOLLOWED UP ON 04/06/19, MODERATE RISK.
[2019-04-03 10:06] LABS: MAGNESIUM 1.9 mg/dL (1.8-2.4); PHOSPHORUS 2.7 mg/dL (2.5-4.9)
--- NOTE | 2019-04-03 10:49 | NUR ---
RECHECKED PT'S BP IS 148/79 AT THIS TIME.
--- NOTE | 2019-04-03 11:26 | NUR ---
DR PUGA NOTIFIED OF PT'S POTASSIUM 3.0
[2019-04-03 12:00] VITALS: BP 153/78
[2019-04-03] MEDS ORDERED: KCL 20 MEQ/WATER INJ PREMIX 200 ML IV SCH (12:00)
--- NOTE | 2019-04-03 12:35 | NUR ---
STARTED PT'S POTASSIUM INFUSION, PT COULD NOT TOLERATE THE BURNING IN HER ARM, AND ASKED FOR IT TO BE TURNED OFF. WILL NOTIFY
[2019-04-03] MEDS ORDERED: POTASSIUM CHLORIDE 40 MEQ, LIDOCAINE MPF 1% 25 MG in NACL 0.9% 250 ML IV SCH (13:30)
[2019-04-03] MEDS ORDERED: POTASSIUM CHLORIDE 10 MEQ TABER PO SCH (15:30)
[2019-04-03 16:00] VITALS: BP 150/85
--- NOTE | 2019-04-03 16:00 | NUR ---
K RIDER INFUSING WITHOUT ISSUES
--- NOTE | 2019-04-03 16:31 | NUR ---
Mrb Engineer Note: Basic Screen: Yes High Risk DC Screen Deary: JUAN MANUEL Bach Relationship: DAUGHTER Pre-Admission Living Arrangements: Lives with Other Other: DAUGHTER Prior ADL Independent Current Home Health Name/Tel: N/A Current DME/02 Name/Tel: N/A Current Hospice Name/Tel: N/A Current Dialysis Name/Tel: N/A Healthcare Decision Maker: Patient Advance Directive No - REFUSED Physician Orders for Life Sustaining Treatment Form No Patient/Family Have Educational Needs No Information Taught: Advance Directive Person Taught: Patient Teaching Tools: Verbal Factors Affecting Learning: None Participation Level: Refused Evaluation: Verbalizes Understanding Needs Additional Education: No Discipline: Case Mgt/Social Svcs Tentative Discharge Plan/Destination: No Needs Identified Will require assistance post discharge: No Referred to Pneumatic Tube Repairer: No Tentative Discharge Plan Summary: Patient is a 48-year-old female admitted for sepsis and tachycardia. 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 Patient was admitted from home. Patient reports history of depression and no history of substance abuse. Patient stated that she receives therapy from [facility]. SW offered education for advanced directive and patient refused at this time. Patients tentative plan after discharge is to return home. No further needs identified. Signature: NAMRATA Dailey Date: Apr 03, 2019 Time: 16:30
--- NOTE | 2019-04-03 19:24 | NUR ---
PT ENDORSED TO THERAPEUTIC STRATEGY LEAD NURSE IN STABLE CONDITION.
--- NOTE | 2019-04-03 19:25 | NUR ---
RECEIVED REPORT FROM HEBERT RN DAYSHIFT NURSE AT BEDSIDE FOR CONTINUITY IF CARE, PT INSTABLE CONDITION.
[2019-04-03 20:00] VITALS: BP 154/81
[2019-04-03] MEDS: INSULIN LANTUS 100 UNITS/ML 10 ML VIAL SUBQ SCH (20:57)
[2019-04-03] MEDS: FLUTICASONE NASAL 50 MCG/ACTUATION 16 GM BTL NS SCH (21:00)
--- NOTE | 2019-04-03 21:07 | NUR ---
PT IS AOX4 SITTING UP IN BED NO S/S OF PAIN OR DISTRESS NOTED. KCL INFUSION IS COMPLETED. LEFT F/A 22G IV SITE INTACT AND ASYMPTOMATIC. V/S FOLLOWS T 97.0 P 98 R 18 B/P 154/81 02 98% ON ROOM AIR. PT FINGERSTICK IS 203, SHE WAS GIVEN 2 UNITS OF HUMALOG COVERAGE WELL 10 UNITS OF LANTUS INSULIN SQ IN LEFT UPPER ARM. PT ALSO PROVIDED DIABETIC SNACK AT BEDSIDE. ALL REQUESTED NEEDS ATTENDED, CALL ACEVEDO IN REACH AND ALL FALLS PROTOCOL IN PLACE. Addendum: 04/03/19 at 2115 by Jesenia Stout RN PT RECEIVED 4 UNITAS OF HUMALOG COVERAGE NOT 2 UNITS. PT ALSO DECLINED FLONASE WHICH WAS DUE AT THIS TIME.
--- NOTE | 2019-04-03 22:00 | NUR ---
PRABHU HUNG AND RUNNING ORDERED.
--- NOTE | 2019-04-03 23:00 | NUR ---
PT SITTING UP IN BED WATCHING TV, NO S/S OF PAIN OR DISTRESS NOTED. BED LOW AND CALL ACEVEDO IN REACH.
[2019-04-04] VITALS: BP 144/72
--- NOTE | 2019-04-04 01:00 | NUR ---
PT IN BED NO S/S OF PAIN OR DISTRESS NOTED. V/S FOLLOWS T 97.9 P 99 R 18 B/P 144/72 02 97% ON ROOM AIR. ALL FALLS PROTOCOL IN PLACE. IV SITE INTACT AND RUNNING N/S AT 130.
[2019-04-04] MEDS: NACL 0.9% 1,000 ML IV SCH ×2 (01:01→09:23)
--- NOTE | 2019-04-04 01:30 | NUR ---
NEW FLUID BAG OF N/S REPLACED AND IS RUNNING AT 130MLS/HR ORDERED.
--- NOTE | 2019-04-04 03:30 | NUR ---
PT IN BED NO S/S OF PAIN OR DISTRESS NOTED. IV SITE INTACT AND PT RUNNING N/S AT 100MLS/HR. ALL FALLS PROTOCOL IN PLACE.
[2019-04-04] MEDS: BLOOD GLUCOSE MONITORING 1 DEV DEV FS SCH ×2 (06:52→12:22)
[2019-04-04] MEDS: INSULIN LISPRO SLIDING SCALE 100 UNITS/ML VIAL SUBQ PRN ×2 (06:55→12:21)
--- NOTE | 2019-04-04 06:55 | NUR ---
FINGERSTICK IS 188, PT GIVEN 2 UNITS OF HUMALOG COVERAGE.
--- NOTE | 2019-04-04 07:11 | NUR ---
RECEIVED BED SIDE REPORT FROM SALES REPRESENTATIVE SALES MANAGER NURSE. PATIENT IN STABLE CONDITION, NO DISTRESS NOTED. WILL CONTINUE TO FOLLOW UP.
[2019-04-04 07:19] LABS: BASOPHILS % (AUTO) 0.5 % (0.0-2.0); EOSINOPHILS # (AUTO) 0.1 K/uL (0-0.4); EOSINOPHILS % (AUTO) 1.6 % (0.0-4.0); HEMATOCRIT 32.4 % (36-48); HEMOGLOBIN 10.1 g/dL (12.0-16.0); LYMPHOCYTES # (AUTO) 2.3 K/uL (2.5-16.5); LYMPHOCYTES % (AUTO) 28.7 % (20.5-51.1); MEAN CORPUSCULAR HEMOGLOBIN 24 pg (27-31); MEAN CORPUSCULAR HGB CONC 31 g/dL (33-37); MEAN CORPUSCULAR VOLUME 76.1 fL (80-94); MONOCYTES # (AUTO) 0.7 K/uL (0.8-1.0); MONOCYTES % (AUTO) 8.9 % (1.7-9.3); NEUTROPHILS # (AUTO) 4.8 K/uL (1.8-7.7); NEUTROPHILS % (AUTO) 60.3 % (42.2-75.2); PLATELET COUNT (AUTO) 278 K/uL (140-450); RED BLOOD CELL COUNT(AUTO) 4.26 MIL/uL (4.20-5.40); RED CELL DISTRIBUTION WIDTH 22.1 % (11.6-13.7)
[2019-04-04 08:00] VITALS: BP 160/87
[2019-04-04 08:28] LABS: ANION GAP 11.3 (8-16); CARBON DIOXIDE 28.7 mmol/L (21-32)
[2019-04-04 08:29] LABS: CREATININE 0.5 mg/dL (0.6-1.3)
[2019-04-04 08:36] LABS: MAGNESIUM 1.8 mg/dL (1.8-2.4); PHOSPHORUS 3.6 mg/dL (2.5-4.9)
[2019-04-04] MEDS ORDERED: LORATADINE 10 MG TAB PO SCH (09:00)
[2019-04-04] MEDS: LACTOBACILLUS RHAMNOSUS GG 1 EACH CAP PO SCH (09:16)
[2019-04-04] MEDS: FLUTICASONE NASAL 50 MCG/ACTUATION 16 GM BTL NS SCH (09:16)
[2019-04-04] MEDS: metFORMIN 500 MG TAB PO SCH (09:17)
[2019-04-04] MEDS: FERROUS SULFATE 325 MG TABEC PO SCH (09:17)
--- NOTE | 2019-04-04 09:18 | NUR ---
AT THE BEDSIDE WITH PATIENT, SCHEDULED MEDS GIVEN AT THIS TIME. NO DISTRESS NOTED. WILL CONTINUE TO MONITOR.
[2019-04-04] MEDS ORDERED: DIPHENOXYLATE /ATROPINE 2.5 MG TAB PO PRN (10:00)
[2019-04-04] MEDS ORDERED: LOPE1SOL12 PO (10:11)
[2019-04-04] MEDS ORDERED: LACT10CA PO (10:11)
[2019-04-04] MEDS ORDERED: FER325 PO (10:11)
[2019-04-04] MEDS ORDERED: SULF-59 PO (10:11)
[2019-04-04] MEDS ORDERED: POTA10TE30 PO (10:46)
[2019-04-04] MEDS ORDERED: POTASSIUM CHLORIDE 10 MEQ TABER PO SCH ×2 (11:00→13:00)
--- NOTE | 2019-04-04 14:09 | NUR ---
AT THE BEDSIDE WITH PATIENT FOR DISCHARGE TEACHING, PATIENT EDUCATED ON MEDICATION REGIMEN AND PLAN OF CARE. PATIENT VERBALIZED UNDERSTANDING OF FOLLOW UP WITH PCP. ALL QUESTIONS WERE ANSWERED AT THIS TIME. PATIENT IS TO GET DRESSED FOR DISCHARGE
--- NOTE | 2019-04-04 14:20 | NUR ---
PATIENT DRESSED AND READY FOR DISCHARGE. SISTER AT THE BEDSIDE. IV DISCONTINUED WITH LUMEN INTACT, NO SWELLING OR REDNESS NOTED. ID BAND REMOVED. PATIENT IN STABLE CONDITION. ALL QUESTIONS ANSWERED. PATIENT ESCORTED TO THE LOBBY ALONG SIDE SISTER. PATIENT DISCHARGED AT THIS TIME
[2019-04-04 15:06] LABS: FOLIC ACID 11.6 ng/mL (>3.0)
== END 2019-04-04 14:20 | disposition home or self-care (01) | DRG 720 ==
LOC: MED 15:27 → MTU 20:31
PROVIDERS: ADMIT General Practice; ATTEND General Practice
DX: A41.51 Sepsis due to Escherichia coli [E. coli] (principal); D68.59 Other primary thrombophilia; E44.0 Moderate protein-calorie malnutrition; K76.0 Fatty (change of) liver, not elsewhere classified; E87.1 Hypo-osmolality and hyponatremia; E83.39 Other disorders of phosphorus metabolism; E87.6 Hypokalemia; N12 Tubulo-interstitial nephritis, not specified as acute or chronic; A09 Infectious gastroenteritis and colitis, unspecified; E11.9 Type 2 diabetes mellitus without complications; D50.9 Iron deficiency anemia, unspecified; R65.20 Severe sepsis without septic shock; I10 Essential (primary) hypertension; E66.9 Obesity, unspecified; J30.9 Allergic rhinitis, unspecified; Z68.38 Body mass index [BMI] 38.0-38.9, adult; Z90.49 Acquired absence of other specified parts of digestive tract; Z88.8 Allergy status to other drugs, medicaments and biological substances; Z88.1 Allergy status to other antibiotic agents; Z91.041 Radiographic dye allergy status; Z91.013 Allergy to seafood; Z79.899 Other long term (current) drug therapy; Z82.49 Family history of ischemic heart disease and other diseases of the circulatory system; Z83.3 Family history of diabetes mellitus; Z82.61 Family history of arthritis; Z82.0 Family history of epilepsy and other diseases of the nervous system
CPT/HCPCS: 36415; 71045; 80048; 80053; 80305; 81001; 81025; 82550; 82553; 82607; 82746; 82948; 83036; 83540; 83605; 83690; 83735; 84100; 84443; 84484; 84703; 85025; 85045; 85610; 85730; 87040; 87045; 87070; 87081; 87086; 87186; 87804; 93005; 96365; 96368; 96375; 99285; J0696; J1815; J1885; J2001; J2270; J2405; J2543; J3370; J3480; J7030; J7060; Q0092

== ENCOUNTER 2019-04-20 10:34 | Emergency (ER) | payer MEDICAID ==
[~2019-04-20] VITALS: Ht 152.4 cm; Wt 95.0 kg
[~2019-04-20 10:34] MED LIST changes: +CETI-32 PO; +FER325 PO; +FLONAS NS; +FLUT1BLS IH; +LACT10CA PO; +LEVA0.043 IH; -LISI10TA11 PO; +LOPE1SOL12 PO; +METF1000 PO; -MIC5 PO; +POTA10TE30 PO; +SULF-59 PO
[2019-04-20 10:35] VITALS: BP 161/89
--- NOTE | 2019-04-20 10:49 | NUR ---
PATIENT AMBULATED TO BED 11. Addendum: 04/20/19 at 1057 by [facility] REPORTED GIVEN TO LEONORA JACKSON
--- NOTE | 2019-04-20 11:23 | NUR ---
48/F C/O ABRASION TO NOSE BRIDGE AND RIGHT FOREHEAD AND PALMS OF BILATERAL HANDS & PAIN TO LEFT KNEE S/P FALL X THIS AM. WAS WALKING THIS AM WHEN TRIPPED AND FELL. NO DIZZINESS BEFORE FALL. DENIES LOC. STATES SOME DIZZINESS POST FALL. PT IS AMBULATORY AFTER FALL. HAS GOOD ROM TO LT KNEE. PAIN 8/10 LT KNEE. BEDRAILS UPX1. DR. HIDALGO HAS ALREADY EVALUATED PT AT BEDSIDE. MED HX: DM,HTN
[2019-04-20] MEDS ORDERED: ACETAMINOPHEN 325 MG TAB PO ONE (11:25)
--- NOTE | 2019-04-20 11:48 | NUR ---
PT BACK FROM CT VIA W/C
--- NOTE | 2019-04-20 12:58 | NUR ---
DR. HIDALGO SPEAKING TO PT AT BEDSIDE.
--- NOTE | 2019-04-20 13:04 | NUR ---
Patient discharged with v/s stable. Written and verbal after care instructions given and explained. Patient verbalized understanding. Ambulatory with steady gait. All questions addressed prior to discharge. Advised to follow up with PMD. WILL WAIT IN LOBBY FOR CD IMAGES AND FOR RIDE HOME WITH SISTER.
[2019-04-20 13:06] VITALS: BP 141/81
== END 2019-04-20 13:04 | disposition home or self-care (01) ==
LOC: MED 10:34
DX: S08.812A Partial traumatic amputation of nose, initial encounter (principal); S09.90XA Unspecified injury of head, initial encounter; E11.9 Type 2 diabetes mellitus without complications; I10 Essential (primary) hypertension; W01.0XXA Fall on same level from slipping, tripping and stumbling without subsequent striking against object, initial encounter; Y93.89 Activity, other specified; Y92.89 Other specified places as the place of occurrence of the external cause; Y99.8 Other external cause status; Z91.013 Allergy to seafood; Z88.8 Allergy status to other drugs, medicaments and biological substances; Z88.1 Allergy status to other antibiotic agents; Z79.899 Other long term (current) drug therapy; Z79.84 Long term (current) use of oral hypoglycemic drugs
CPT/HCPCS: 70450; 70486; 81025; 99284